=== PATIENT | female | born 1955 | race Caucasian/White ===

== ENCOUNTER 2018-02-27 16:24 | Emergency (ER) | payer OTHER ==
[~2018-02-27] VITALS: Wt 85.8 kg
[2018-02-27] MEDS ORDERED: ALBUTEROL 0.083% (NEB) 2.5 MG/3 ML AMP HHN STA (17:13)
[2018-02-27] MEDS ORDERED: SOD CHLORIDE 0.9% 1,000 ML IV STA (17:13)
[2018-02-27] MEDS ORDERED: CEFTRIAXONE 1 GM/50 ML (PMX) 50 ML IVPB STA (17:13)
--- NOTE | 2018-02-27 17:17 | ERD ---
ER Documentation Chief Complaint Chief Complaint COUGH/BACK PAIN X3DAYS SOB, DIARRHEA X3DAYS ROS All systems reviewed and are negative except as per history of present illness. Allergies Allergies: Coded Allergies: No Known Allergy (Unverified , 02/27/18) PMhx/Soc Medical and Surgical Hx: pt denies Surgical Hx Hx Miscellaneous Medical Probl: Yes (HTN,DM) Hx Alcohol Use: No Hx Substance Use: No Hx Tobacco Use: No Smoking Status: Never smoker Physical Exam Vitals Vital Signs Date Temp Pulse Resp B/P (MAP) Pulse Ox O2 O2 Flow FiO2 Time Delivery Rate 02/27/18 110 24 84 21 17:36 02/27/18 97.5 80 28 103/58 99 16:27 (73) Physical Exam Const: No acute distress Head: Atraumatic Eyes: Normal Conjunctiva ENT: Normal External Ears, Nose and Mouth. Neck: Full range of motion. No meningismus. Resp: Clear to auscultation bilaterally Cardio: Regular rate and rhythm, no murmurs Abd: Soft, non tender, non distended. Normal bowel sounds Skin: No petechiae or rashes Back: No midline or flank tenderness Ext: No cyanosis, or edema Neur: Awake and alert Psych: Normal Mood and Affect Result Diagram: 02/27/18 1741 Results 24 hrs Laboratory Tests Test 02/27/18 17:25 02/27/18 17:41 02/27/18 17:44 Urine Color YELLOW Urine Clarity SLIGHTLY CLOUDY Urine pH 5.0 Urine Specific [place] 1.018 Urine Ketones NEGATIVE mg/dL Urine Nitrite NEGATIVE mg/dL Urine Bilirubin NEGATIVE mg/dL Urine Urobilinogen NEGATIVE mg/dL Urine Leukocyte Esterase TRACE Iraida/ul Urine Microscopic RBC 2 /HPF Urine Microscopic WBC 11 /HPF Urine Squamous Epithelial Cells FEW /HPF Urine Hemoglobin NEGATIVE mg/dL Urine Glucose 3+ mg/dL Urine Total Protein 3+ mg/dl White Blood Count 18.0 10^3/ul Red Blood Count 3.81 10^6/ul Hemoglobin 11.5 g/dl Hematocrit 35.2 % Mean Corpuscular Volume 92.4 fl Mean Corpuscular Hemoglobin 30.2 pg Mean Corpuscular 32.7 g/dl Hemoglobin Concent Red Cell Distribution Width 13.2 % Platelet Count 350 10^3/UL Mean Platelet Volume 10.5 fl Immature Granulocytes % 0.500 % Neutrophils % 80.3 % Lymphocytes % 14.0 % Monocytes % 5.0 % Eosinophils % 0.0 % Basophils % 0.2 % Nucleated Red Blood Cells % 0.9 /100WBC Immature Granulocytes # 0.090 10^3/ul Neutrophils # 14.4 10^3/ul Lymphocytes # 2.5 10^3/ul Monocytes # 0.9 10^3/ul Eosinophils # 0.0 10^3/ul Basophils # 0.0 10^3/ul Nucleated Red Blood Cells # 0.2 10^3/ul POC Venous Lactate 6.4 mmol/L Current Medications Medications Dose Sig/Musa Start Time Status Last (Trade) Ordered Route PRN Stop Time Admin Dose Reason Admin Sodium 1,000 ml @ Q1H STAT 02/27/18 02/27/18 Chloride 1,000 mls/hr IV 17:13 17:30 02/27/18 18:12 Ceftriaxone 50 ml @ ONCE STAT 02/27/18 DC 02/27/18 Sodium 100 mls/hr IVPB 17:13 17:31 02/27/18 17:42 Albuterol 5 mg ONCE STAT 02/27/18 DC 02/27/18 (Proventil HHN 17:13 17:36 0.083% (Neb)) 02/27/18 17:22 Ipratropium 0.5 mg ONCE ONCE 02/27/18 DC 02/27/18 [facility] HHN 17:30 17:36 (Atrovent 02/27/18 0.02% 17:31 (Neb)) Departure Condition: Stable BLAIRE BONILLA MD Feb 27, 2018 17:17
[2018-02-27] MEDS ORDERED: IPRATROPIUM (NEB) 0.5 MG/2.5 ML AMP HHN ONE (17:30)
[2018-02-27] MEDS ORDERED: SODIUM CHLORIDE 0.9% 1L BAG IV* STA (17:52)
[2018-02-27] MEDS ORDERED: ACETAMINOPHEN 325 MG TAB PO STA (17:52)
[2018-02-27] MEDS ORDERED: AZITHROMYCIN 500MG/NS (PMX) 250 ML IV STA (17:52)
[2018-02-27] MEDS ORDERED: NPH,100V SQ (18:42)
[2018-02-27] MEDS ORDERED: INSU100V3 IJ (18:42)
[2018-02-27] MEDS ORDERED: IRBE150T21 PO (18:43)
[2018-02-27] MEDS ORDERED: AMLO-147 PO (18:43)
[2018-02-27] MEDS ORDERED: METF850T13 PO (18:43)
[2018-02-27] MEDS ORDERED: AZIT250T13 PO (18:45)
[2018-02-27] MEDS ORDERED: INSULIN LISPRO 100 UNIT/ML VIAL SC ONE (19:00)
[2018-02-27] MEDS ORDERED: ASPIRIN 325 MG TAB PO ONE (19:00)
--- NOTE | 2018-02-27 19:19 | ERD ---
ER Documentation Chief Complaint Chief Complaint COUGH/BACK PAIN X3DAYS SOB, DIARRHEA X3DAYS HPI Patient is a 62-year-old female with hypertension and diabetes who presents with chest pain and cough. The patient also had back pain and vomiting and diarrhea. The patient has no fevers. The patient has had 3 days of symptoms. The patient has had shortness of breath with minimal exertion. The patient is on metformin. Upon review of old medical records this is the patient's first visit to the emergency department. ROS All systems reviewed and are negative except as per history of present illness. Medications Home Meds Reported Medications Azithromycin* (Azithromycin*) 250 Mg Tablet, 250 MG PO DAILY for 5 Days, #6 TAB FOR 5 DAYS,LAST DATE 03/01/18 02/27/18 Irbesartan* (Irbesartan*) 150 Mg Tablet, 150 MG PO DAILY, TAB 02/27/18 Amlodipine Besylate* (Amlodipine Besylate*) 10 Mg Tablet, 10 MG PO DAILY, #30 TAB 02/27/18 Metformin Hcl* (Metformin Hcl*) 850 Mg Tablet, 850 MG PO AC D, #60 TAB 02/27/18 Insulin NPH Human Isophane (Humulin N) 100 Unit/1 Ml Vial, 15 UNIT SQ BID, VIAL 02/27/18 Insulin Regular, Human (Humulin R) 100 Unit/1 Ml Vial, 10 UNIT IJ BID, VIAL 02/27/18 Allergies Allergies: Coded Allergies: No Known Allergy (Unverified , 02/27/18) PMhx/Soc Medical and Surgical Hx: pt denies Surgical Hx Hx Miscellaneous Medical Probl: Yes (HTN,DM) Hx Alcohol Use: No Hx Substance Use: No Hx Tobacco Use: No Smoking Status: Never smoker FmHx Family History: diabetes Physical Exam Vitals Vital Signs Date Temp Pulse Resp B/P (MAP) Pulse Ox O2 O2 Flow FiO2 Time Delivery Rate 02/27/18 97.5 19:09 02/27/18 105 27 122/97 95 Nasal 2.0 18:57 (105) Cannula 02/27/18 110 24 84 21 17:36 02/27/18 97.5 80 28 103/58 99 16:27 (73) Physical Exam Const: Distress secondary to shortness of breath Head: Atraumatic Eyes: Normal Conjunctiva ENT: Normal External Ears, Nose and Mouth. Neck: Full range of motion. No meningismus. Resp: Decreased breath sounds bilaterally Cardio: Regular rate and rhythm, no murmurs Abd: Soft, non tender, non distended. Normal bowel sounds Skin: No petechiae or rashes Back: No midline or flank tenderness Ext: No cyanosis, or edema Neur: Awake and alert Psych: Normal Mood and Affect Result Diagram: 02/27/18 1741 02/27/18 1741 Results 24 hrs Laboratory Tests Test 02/27/18 17:25 02/27/18 17:41 02/27/18 17:44 02/27/18 18:15 Urine Color YELLOW Urine Clarity SLIGHTLY CLOUDY Urine pH 5.0 Urine Specific 1.018 [place] Urine Ketones NEGATIVE mg/dL Urine Nitrite NEGATIVE mg/dL Urine Bilirubin NEGATIVE mg/dL Urine NEGATIVE mg/dL Urobilinogen Urine Leukocyte TRACE Iraida/ul Esterase Urine 2 /HPF Microscopic RBC Urine 11 /HPF Microscopic WBC Urine Squamous FEW /HPF Epithelial Cell s Urine NEGATIVE mg/dL Hemoglobin Urine Glucose 3+ mg/dL Urine Total 3+ mg/dl Protein White Blood 18.0 10^3/ul Count Red Blood Count 3.81 10^6/ul Hemoglobin 11.5 g/dl Hematocrit 35.2 % Mean 92.4 fl Corpuscular Volume Mean 30.2 pg Corpuscular Hemoglobin Mean 32.7 g/dl Corpuscular Hemoglobin Conc ent Red Cell 13.2 % Distribution Width Platelet Count 350 10^3/UL Mean Platelet 10.5 fl Volume Immature 0.500 % Granulocytes % Neutrophils % 80.3 % Lymphocytes % 14.0 % Monocytes % 5.0 % Eosinophils % 0.0 % Basophils % 0.2 % Nucleated Red 0.9 /100WBC Blood Cells % Immature 0.090 10^3/ul Granulocytes # Neutrophils # 14.4 10^3/ul Lymphocytes # 2.5 10^3/ul Monocytes # 0.9 10^3/ul Eosinophils # 0.0 10^3/ul Basophils # 0.0 10^3/ul Nucleated Red 0.2 10^3/ul Blood Cells # Sodium Level 129 mmol/L Potassium Level 5.1 mmol/L Chloride Level 87 mmol/L Carbon Dioxide 21 mmol/L Level Anion Gap 21 Blood Urea 70 mg/dl Nitrogen Creatinine 1.94 mg/dl Est Glomerular 26 mL/min Filtrat Rate mL/min Glucose Level 526 mg/dl Calcium Level 8.8 mg/dl Troponin I 26.100 ng/ml POC Venous 6.4 mmol/L Lactate Prothrombin 14.2 Sec Time Prothrombin 1.1 Time Ratio INR 1.09 International Normalized Rati o Activated 29.6 Sec Partial Thrombo plast Time Test 02/27/18 18:27 02/27/18 18:54 Lactic Acid 9.2 mmol/L Level Bedside Glucose 474 mg/dL Current Medications Medications Dose Sig/Musa Start Time Status Last (Trade) Ordered Route PRN Stop Time Admin Dose Reason Admin Sodium 1,000 ml @ Q1H STAT 02/27/18 DC 02/27/18 Chloride 1,000 mls/hr IV 17:13 17:30 02/27/18 18:12 Ceftriaxone 50 ml @ ONCE STAT 02/27/18 DC 02/27/18 Sodium 100 mls/hr IVPB 17:13 17:31 02/27/18 17:42 Albuterol 5 mg ONCE STAT 02/27/18 DC 02/27/18 (Proventil HHN 17:13 17:36 0.083% (Neb)) 02/27/18 17:22 Ipratropium 0.5 mg ONCE ONCE 02/27/18 DC 02/27/18 [facility] HHN 17:30 17:36 (Atrovent 02/27/18 0.02% 17:31 (Neb)) Sodium 2,570 ml BOLUS OVER 2 02/27/18 DC Chloride HOURS STAT 17:52 (NS) IV* 02/27/18 18:42 650 mg ONCE STAT 02/27/18 DC Acetaminophen PO 17:52 (Tylenol 02/27/18 Tab) 17:55 Azithromycin 250 ml @ ONCE STAT 02/27/18 DC 02/27/18 250 mls/hr IV 17:52 18:36 02/27/18 18:51 Insulin 10 unit ONCE ONCE 02/27/18 DC 02/27/18 Human SC 19:00 18:58 Lispro 02/27/18 (Humalog) 19:01 Aspirin 325 mg ONCE ONCE 02/27/18 DC 02/27/18 (Aspirin) PO 19:00 18:52 02/27/18 19:01 Procedures/MDM EKG #1 read by me: Rate/Rhythm: Sinus rhythm Intervals: Normal Impression: ST elevation in aVR with diffuse ST depressions in other leads consistent with left main occlusion EKG #2 read by me: Rate/Rhythm: Sinus rhythm Intervals: Normal Impression: ST elevation in aVR with diffuse ST depressions in other leads consistent with left main occlusion Chest x-ray shows pulmonary edema per radiology. Patient is a 62-year-old female who presents with cough and shortness of breath as well as chest pain. EKG shows ST elevation only in aVR with diffuse ST depressions. There is no elevation in contiguous leads but pattern is consistent with left main occlusion. I spoke with Dr. Silva who recommended transfer for higher level of care as our [facility] is closed for renovation. Patient was given aspirin. Lactic acid is elevated but I doubt sepsis or septic shock I believe it's elevated secondary to cardiac pump failure. Patient accepted at 19:[address] Nieto at [facility]. Critical care time 45 minutes excluding billable procedures. Departure Diagnosis: Primary Impression: STEMI (ST elevation myocardial infarction) Involved coronary artery: left main coronary artery Qualified Codes: I21.01 - ST elevation (STEMI) myocardial infarction involving left main coronary artery Additional Impressions: Lactic acid increased SOB (shortness of breath) Hyperglycemia Condition: Critical GM MANDUJANO MD Feb 27, 2018 19:19
[2018-02-27 19:24] VITALS: BP 168/118; PULSE 106; RESP 30
== END 2018-02-27 19:24 | disposition short-term general hospital (02) ==
LOC: FTE 16:24 → E/R 19:24
DX: I21.01 ST elevation (STEMI) myocardial infarction involving left main coronary artery (principal); R06.02 Shortness of breath; R74.0 Nonspecific elevation of levels of transaminase and lactic acid dehydrogenase [LDH]; E11.65 Type 2 diabetes mellitus with hyperglycemia; R40.2252 Coma scale, best verbal response, oriented, at arrival to emergency department; R40.2362 Coma scale, best motor response, obeys commands, at arrival to emergency department; R40.2142 Coma scale, eyes open, spontaneous, at arrival to emergency department; I10 Essential (primary) hypertension; M54.9 Dorsalgia, unspecified; Z79.4 Long term (current) use of insulin
CPT/HCPCS: 71045; 80048; 81001; 82962; 83605; 84484; 85025; 85610; 85730; 87040; 87086; 87400; 94664; J0456; J0696; J1815; J7030; 93005; 96372; 96374; 96375

== ENCOUNTER 2018-05-23 12:17 | Inpatient (IN) | payer OTHER ==
[~2018-05-23] VITALS: Ht 160 cm; Wt 74.3 kg
[~2018-05-23 12:17] MED LIST: AMLO-147 PO; AZIT250T13 PO; INSU100V3 IJ; IRBE150T21 PO; METF850T13 PO; NPH,100V SQ
--- NOTE | 2018-05-23 15:58 | ERD ---
ER Documentation Chief Complaint Chief Complaint dizziness; numbness on both hands since 8am; a/ox4,ambulatory HPI 62-year-old female with a history of coronary artery disease status post CABG in March 2018 presenting with an episode today of difficulty speaking which then self resolved. After this, she had an episode of numbness in her left arm causing her to drop a plate. The numbness in her arm has currently improved and is only present in her left hand. She denies any current weakness. She denies any headache, vision disturbance, or dizziness. No chest pain or shortness of breath. She has never experienced something like this before. She is compliant with all of her medications. Her only blood thinner is aspirin and she is not on any other anticoagulants. ROS All systems reviewed and are negative except as per history of present illness. Medications Home Meds Reported Medications Insulin Isophan/Regular (Humulin 70/30) 100 Units/Ml Susp, 25 UNIT SC QPM, EA 05/23/18 Furosemide* (Furosemide*) 20 Mg Tablet, 20 MG PO DAILY, #30 TAB 05/23/18 Aspirin (Low Dose Aspirin) 81 Mg Tablet.dr, 81 MG PO DAILY, #30 TAB 05/23/18 Metformin Hcl* (Metformin Hcl*) 850 Mg Tablet, 850 MG PO TIDM A, #60 TAB 05/23/18 Sennosides* (Senna Lax*) 8.6 Mg Tablet, 2 TAB PO QHS, TAB 05/23/18 Atorvastatin* (Atorvastatin*) 40 Mg Tablet, 40 MG PO QHS, #30 TAB 05/23/18 Ferrous Sulfate* (Ferrous Sulfate*) 325 Mg Tabec, 325 MG PO BID, TAB 05/23/18 Carvedilol* (Carvedilol*) 3.125 Mg Tablet, 3.125 MG PO BID, #60 TAB 05/23/18 Discontinued Reported Medications Azithromycin* (Azithromycin*) 250 Mg Tablet, 250 MG PO DAILY for 5 Days, #6 TAB FOR 5 DAYS,LAST DATE 03/01/18 02/27/18 Irbesartan* (Irbesartan*) 150 Mg Tablet, 150 MG PO DAILY, TAB 02/27/18 Amlodipine Besylate* (Amlodipine Besylate*) 10 Mg Tablet, 10 MG PO DAILY, #30 TAB 02/27/18 Metformin Hcl* (Metformin Hcl*) 850 Mg Tablet, 850 MG PO AC D, #60 TAB 02/27/18 Insulin NPH Human Isophane (Humulin N) 100 Unit/1 Ml Vial, 15 UNIT SQ BID, VIAL 02/27/18 Insulin Regular, Human (Humulin R) 100 Unit/1 Ml Vial, 10 UNIT IJ BID, VIAL 02/27/18 Allergies Allergies: Coded Allergies: No Known Allergy (Unverified , 05/23/18) PMhx/Soc Medical and Surgical Hx: Unable to obtain History of Surgery: Yes (CABG March 2018) Anesthesia Reaction: No Hx Cardiac Disorders: Yes (Coronary artery disease) Hx Miscellaneous Medical Probl: Yes (HTN,DM) Hx Alcohol Use: No Hx Substance Use: No Hx Tobacco Use: No Smoking Status: Never smoker FmHx Family History: No diabetes Physical Exam Vitals Vital Signs Date Temp Pulse Resp B/P (MAP) Pulse Ox O2 O2 Flow FiO2 Time Delivery Rate 05/23/18 78 18 132/71 99 Room Air 18:14 (91) 05/23/18 98.6 102 20 219/102 99 12:23 (141) Physical Exam Const: No acute distress Head: Atraumatic Eyes: Normal Conjunctiva, PERRLA, EOMI, no nystagmus ENT: Normal External Ears, Nose and Mouth. Neck: Full range of motion. No meningismus. Chest wall: Midline sternotomy scar noted, well-healed. No chest wall tenderness to palpation. Resp: Clear to auscultation bilaterally Cardio: Regular rate and rhythm, no murmurs. 2+ distal pulses in all 4 extremities Abd: Soft, non tender, non distended. Normal bowel sounds Skin: No petechiae or rashes Back: No midline or flank tenderness Ext: No cyanosis, or edema Neur: Awake and alert, oriented, normal speech with no aphasia or dysarthria. Cranial nerves intact, strength and sensations intact in all 4 extremities. Psych: Normal Mood and Affect Result Diagram: 05/23/18 1550 05/23/18 1550 Results 24 hrs Laboratory Tests Test 05/23/18 15:50 White Blood Count 10.2 10^3/ul Red Blood Count 4.95 10^6/ul Hemoglobin 14.5 g/dl Hematocrit 44.9 % Mean Corpuscular Volume 90.7 fl Mean Corpuscular Hemoglobin 29.3 pg Mean Corpuscular Hemoglobin Concent 32.3 g/dl Red Cell Distribution Width 14.6 % Platelet Count 393 10^3/UL Mean Platelet Volume 10.2 fl Immature Granulocytes % 0.400 % Neutrophils % 60.5 % Lymphocytes % 34.4 % Monocytes % 4.2 % Eosinophils % 0.2 % Basophils % 0.3 % Nucleated Red Blood Cells % 0.0 /100WBC Immature Granulocytes # 0.040 10^3/ul Neutrophils # 6.2 10^3/ul Lymphocytes # 3.5 10^3/ul Monocytes # 0.4 10^3/ul Eosinophils # 0.0 10^3/ul Basophils # 0.0 10^3/ul Nucleated Red Blood Cells # 0.0 10^3/ul Sodium Level 143 mmol/L Potassium Level 4.4 mmol/L Chloride Level 99 mmol/L Carbon Dioxide Level 30 mmol/L Anion Gap 14 Blood Urea Nitrogen 21 mg/dl Creatinine 0.93 mg/dl Est Glomerular Filtrat Rate mL/min > 60 mL/min Glucose Level 186 mg/dl Calcium Level 10.2 mg/dl Troponin I 0.022 ng/ml Procedures/MDM EMERGENT LABS AND DIAGNOSTIC STUDIES: Lab Results above were reviewed and interpreted by me. CBC: no anemia or evidence of infection CMP: No evidence of electrolyte abnormality, renal failure, hypoglycemia, liver failure, or biliary obstruction Troponin within normal limits, not indicative of cardiac ischemia 12-lead EKG was interpreted by Mary Vernon MD: Sinus rhythm with frequent PVCs Normal axis Normal intervals No acute ST or T wave changes suggestive of acute ischemia or STEMI. Radiology Results as interpreted by Radiology below were reviewed by Nadine Vernon MD: Chest x-ray shows no acute abnormalities. CT head shows no acute abnormalities Initial Nursing notes reviewed. Previous Medical Records requested via the Electronic Health Record. EMERGENCY DEPARTMENT COURSE / MEDICAL DECISION MAKING: Patient is presenting with intermittent neurologic symptoms concerning for possible TIA. She was noted to be hypertensive upon arrival but otherwise her vitals were unremarkable. Her neurologic exam currently is normal. There are no signs of acute stroke. CT head was done and was unremarkable. Labs do not show any significant abnormalities either. I doubt acute coronary syndrome or carotid or aortic dissection. However I feel the patient needs a stroke workup to rule out any embolic source of her symptoms. Accepting Care Team: Current data and ongoing care discussed. Time: Time of admission Primary Provider: Dr. Akua Boo Consulting: None Outstanding Data: none Departure Diagnosis: Primary Impression: Transient neurological symptoms Condition: SUSHILA Head MD May 23, 2018 15:58
[2018-05-23] MEDS ORDERED: CARV3.1260 PO (17:20)
[2018-05-23] MEDS ORDERED: ATOR40TA68 PO (17:21)
[2018-05-23] MEDS ORDERED: FER325 PO (17:21)
[2018-05-23] MEDS ORDERED: SENN-120 PO (17:21)
[2018-05-23] MEDS ORDERED: FURO20TA3 PO (17:22)
[2018-05-23] MEDS ORDERED: METF850T13 PO (17:22)
[2018-05-23] MEDS ORDERED: ASPI81TA52 PO (17:22)
[2018-05-23] MEDS ORDERED: NOVO7030 SC (17:24)
[2018-05-23] MEDS ORDERED: ACETAMINOPHEN 325 MG TAB PO PRN (18:30)
[2018-05-23] MEDS ORDERED: ONDANSETRON 4 MG INJ IV PRN ×2 (18:30→20:30)
[2018-05-23 20:00] VITALS: BP 189/83; PULSE 80; RESP 18; Ht 160 cm; Wt 74.3 kg
[2018-05-23 20:10] VITALS: PULSE 85
[2018-05-23] MEDS ORDERED: GLUCOSE GEL 15 GRAM TUBE BUCCAL PRN (20:30)
[2018-05-23] MEDS ORDERED: morphine 2 MG INJ IV PRN (20:30)
[2018-05-23] MEDS ORDERED: GLUCAGON 1 MG INJ IM PRN (20:30)
[2018-05-23] MEDS ORDERED: GLUCOSE GEL 15 GRAM TUBE PO PRN ×2 (20:30)
[2018-05-23] MEDS ORDERED: DEXTROSE 50% 50 ML SYRINGE IV PRN ×2 (20:30)
[2018-05-23] MEDS ORDERED: NACL 0.9% 3 ML SYG IV SCH (20:30)
[2018-05-23] MEDS: ACCU-CHEK XX SCH (21:00)
[2018-05-23] MEDS: FERROUS SULFATE (EC) 325 MG TAB PO SCH (21:30)
[2018-05-23] MEDS: metFORMIN 850 MG TAB PO SCH (21:31)
[2018-05-23] MEDS: SENNA TAB PO SCH (21:31)
[2018-05-23] MEDS: FAMOTIDINE 20 MG INJ IV SCH (21:32)
[2018-05-23] MEDS: ATORVASTATIN 40 MG TAB PO SCH (21:32)
[2018-05-23] MEDS: INSULIN ASP PROT/ASPART (70/30) PEN SC SCH (22:48)
[2018-05-24] VITALS (12 sets, daily range): BP systolic 122–165; BP diastolic 61–90; PULSE 62–131; RESP 16–20
[2018-05-24] MEDS: ACCU-CHEK XX SCH ×5 (02:00→21:00)
[2018-05-24] MEDS: FERROUS SULFATE (EC) 325 MG TAB PO SCH ×2 (08:09→21:17)
[2018-05-24] MEDS: metFORMIN 850 MG TAB PO SCH ×2 (08:09→18:03)
[2018-05-24] MEDS: ASPIRIN (EC) 81 MG TAB PO SCH (08:10)
[2018-05-24] MEDS: FUROSEMIDE 20 MG TAB PO SCH (08:11)
[2018-05-24] MEDS: FAMOTIDINE 20 MG INJ IV SCH ×2 (08:12→21:16)
[2018-05-24] MEDS: ENOXAPARIN 30 MG/0.3 ML SYG SC SCH (08:13)
[2018-05-24] MEDS: INSULIN ASPART [NOVOLOG] 3 ML PEN SC SCH ×3 (10:08→18:12)
--- NOTE | 2018-05-24 12:15 | HP ---
Date/Time of Note Date/Time of Note DATE: 05/24/18 TIME: 12:11 Assessment/Plan VTE Prophylaxis Risk score (from Ns)>0 risk: 3 SCD applied (from Ns): Yes Pharmacological prophylaxis: LMWH Lines/Catheters IV [facility]from [facility] Saline Lock Urinary Cath still in place: No Assessment/Plan Hospital Course 1) left sided numbness, weakness; possible TIA - check MRI, carotid doppler - monitor clinically 2) diabetes - monitor blood sugar Result Diagram: 05/24/18 0506 05/24/18 0506 Results 24hrs Laboratory Tests Test 05/23/18 15:50 05/23/18 20:26 05/24/18 05:06 05/24/18 07:43 White Blood Count 10.2 # 11.4 H Red Blood Count 4.95 # 4.55 Hemoglobin 14.5 # 13.4 Hematocrit 44.9 # 41.4 Mean Corpuscular 90.7 91.0 Volume Mean Corpuscular 29.3 29.5 Hemoglobin Mean Corpuscular 32.3 32.4 Hemoglobin Concent Red Cell 14.6 H 14.7 H Distribution Width Platelet Count 393 365 Mean Platelet Volume 10.2 10.2 Immature 0.400 0.400 Granulocytes % Neutrophils % 60.5 59.3 Lymphocytes % 34.4 33.2 Monocytes % 4.2 6.3 Eosinophils % 0.2 0.4 Basophils % 0.3 0.4 Nucleated Red Blood 0.0 0.0 Cells % Immature 0.040 H 0.040 H Granulocytes # Neutrophils # 6.2 6.8 Lymphocytes # 3.5 H 3.8 H Monocytes # 0.4 0.7 Eosinophils # 0.0 0.0 Basophils # 0.0 0.0 Nucleated Red Blood 0.0 0.0 Cells # Sodium Level 143 144 Potassium Level 4.4 3.9 Chloride Level 99 104 Carbon Dioxide Level 30 32 H Anion Gap 14 H 8 Blood Urea Nitrogen 21 H 20 Creatinine 0.93 1.01 H Est Glomerular > 60 56 L Filtrat Rate mL/min Glucose Level 186 63 #L Calcium Level 10.2 9.6 Troponin I 0.022 Bedside Glucose 156 90 Hemoglobin A1c 7.9 H Total Bilirubin 0.4 Direct Bilirubin 0.00 Indirect Bilirubin 0.4 Aspartate Amino 30 Transf (AST/SGOT) Alanine 21 Aminotransferase (AL T/SGPT) Alkaline Phosphatase 107 Total Protein 6.9 Albumin 3.6 Globulin 3.30 H Albumin/Globulin 1.09 Ratio Test 05/24/18 10:06 Bedside Glucose 166 HPI/ROS Admit Date/Time Admit Date/Time May 23, 2018 at 18:27 Hx of Present Illness Patient with hypertension, diabetes, coronary artery disease comes in with 1 day of dysarthria, left sided numbness and weakness of arms. Symptoms of dysarthria lasted minutes while the numbness originally affected the left side of arm but is now only affected the dorsal area of left thumb. Weakness of left arm is intermitted lasting only seconds. No previous episodes of the same PMH/Family/Social Past Medical History Medical History: coronary artery disease, diabetes, high cholesterol Medications Current Medications IV Flush (NS 3 ml) 3 ml PER PROTOCOL IV ; Start 05/23/18 at 20:30 Ondansetron HCl (Zofran Inj) 4 mg Q6H PRN IV NAUSEA/VOMITING; Start 05/23/18 at 20:30 Morphine Sulfate (morphine) 2 mg Q4H PRN IV .PAIN 7-10; Start 05/23/18 at 20:30 Famotidine (Pepcid Iv) 20 mg Q12 IV Last administered on 05/24/18at 08:12; Admin Dose 20 MG; Start 05/23/18 at 21:00 Enoxaparin Sodium (Lovenox) 30 mg DAILY SC Last administered on 05/24/18at 08:13 ; Admin Dose 30 MG; Start 05/24/18 at 09:00 Clonidine (Catapres) 0.1 mg Q6H PRN PO SBP >160 Last administered on 05/24/18at 05:10; Admin Dose 0.1 MG; Start 05/23/18 at 20:30 Diagnostic Test (Pha) (Accu-Chek) 1 ea 02 XX ; Start 05/24/18 at 02:00 Insulin Aspart (Novolog Insulin Pen) 5 unit WITH MEALS SC Last administered on 05/24/18at 10:08; Admin Dose 5 UNIT; Start 05/24/18 at 08:00 Aspirin (Halfprin) 81 mg DAILY PO Last administered on 05/24/18at 08:10; Admin Dose 81 MG; Start 05/24/18 at 09:00 Atorvastatin Calcium (Lipitor) 40 mg QHS PO Last administered on 05/23/18 21:32; Admin Dose 40 MG; Start 05/23/18 at 21:00 Carvedilol (Coreg) 3.125 mg BID PO Last administered on 05/24/18 08:11; Admin Dose 3.125 MG; Start 05/23/18 at 21:00 Ferrous Sulfate (Ferrous Sulfate (Ec)) 325 mg BID PO Last administered on 05/24/18 08:09; Admin Dose 325 MG; Start 05/23/18 at 21:00 Furosemide (Lasix) 20 mg DAILY PO Last administered on 05/24/18 08:11; Admin Dose 20 MG; Start 05/24/18 at 09:00 Metformin HCl (Glucophage) 850 mg BID WITH MEALS PO Last administered on 05/24/18 08:09; Admin Dose 850 MG; Start 05/23/18 at 21:00 Senna (Senokot) 2 tab QHS PO Last administered on 05/23/18 21:31; Admin Dose 2 TAB; Start 05/23/18 at 21:00 Diagnostic Test (Pha) (Accu-Chek) 1 ea AC MEALS AND BEDTIME XX Last administered on 05/24/18 07:30; Admin Dose 1 EA; Start 05/23/18 at 21:00 Insulin Aspart Prota 70%/Aspart 30% (Novolog Mix (70/ 30) Flexpen) 25 unit QPM SC Last administered on 05/23/18 22:48; Admin Dose 25 UNIT; Start 05/23/18 at 21:00 Miscellaneous Information 1 ea NOTE XX ; Start 05/23/18 at 20:30 Glucose (Glutose) 15 gm Q15M PRN PO DECREASED GLUCOSE; Start 05/23/18 at 20:30 Glucose (Glutose) 22.5 gm Q15M PRN PO DECREASED GLUCOSE; Start 05/23/18 at 20:30 Dextrose (D50w Syringe) 25 ml Q15M PRN IV DECREASED GLUCOSE; Start 05/23/18 at 20:30 Dextrose (D50w Syringe) 50 ml Q15M PRN IV DECREASED GLUCOSE; Start 05/23/18 at 20:30 Glucagon (Glucagen) 1 mg Q15M PRN IM DECREASED GLUCOSE; Start 05/23/18 at 20:30 Glucose (Glutose) 15 gm Q15M PRN BUCCAL DECREASED GLUCOSE; Start 05/23/18 at 20:30 Coded Allergies: No Known Allergy (Unverified , 05/23/18) Social History Smoking Status: Never smoker Exam/Review of Systems Vital Signs Vitals Vital Signs Date Temp Pulse Resp B/P (MAP) Pulse Ox O2 O2 Flow FiO2 Time Delivery Rate 05/24/18 63 08:12 05/24/18 99.0 20 158/75 98 07:56 (102) 05/23/18 Room Air 19:31 Exam Constitutional: well developed Head: normocephalic, atraumatic Neck: supple Respiratory: clear to auscultation Cardiovascular: regular rate and rhythm Gastrointestinal: soft, non-tender Extremities: normal pulses ZOIE WINCHESTER May 24, 2018 12:15
--- NOTE | 2018-05-24 16:20 | RADRPT ---
Echocardiogram Report Patient Name: CASSANDRA GRUBERatient ID: [id number] : 1955 (62y 12m)Study Date: 05/24/2018 7:36:58 AM Gender: FAccession #: [id number] Tech: Darrin LeninHELEN jasso Location: Ref.Physician: ZOIE WINCHESTER Height(Cm): BSA: Weight(Kg): Quality: GoodAccount #: Procedures: Echocardiographic Report: Transthoracic echocardiogram with complete 2D, M-Mode, and doppler examination. Indications: Possible Transient Ischemic Attack. Measurements: 2D/M Mode Doppler Measurement Value Normal Range Measurement Value Normal Range LVIDd 2D 5.6 [ 3.8 - 5.2 ] cm AV Peak Mihir 1.3 [ 100.0 - 170.0 ] cm/se c LVIDs 2D 4.7 [ 2.2 - 3.5 ] cm AV Peak PG 7.0 [ 2.0 - 9.0 ] mmHg LVPWd 2D 1.2 [ 0.6 - 0.9 ] cm LVOT Peak Mihir 0.7 [ 70.0 - 110.0 ] cm/sec IVSd 2D 0.9 [ 0.6 - 0.9 ] cm LVOT Peak PG 2.0 [ 2.0 - 6.0 ] mmHg AoR Diam 2D 2.7 [ 2.3 - 3.1 ] cm MV E Peak Mihir 0.5 [ 60.0 - 130.0 ] cm/sec EDV 2D 151.0 [ 46.0 - 106.0 ] ml MV A Peak Imhir 0.8 [ 100.0 - 120.0 ] cm/se c ESV 2D 103.0 [ 14.0 - 42.0 ] ml MV E/A 0.7 [ 0.8 - 1.5 ] ratio EF 2D 31.8 [ 54.0 - 74.0 ] percent MV PHT 48.0 [ 20.0 - 100.0 ] msec LA Dimen 2D 3.9 [ 2.7 - 3.8 ] cm MV Decel Time 165 [ 104 - 258 ] msec MV Decel [place] 3 Lat E` Mihir 0.1 [ 10.0 - 15.0 ] cm/sec Lateral E/E` 8.2 [ 1.0 - 2.0 ] ratio MV E/A 0.7 [ 0.8 - 1.5 ] ratio MVA PHT 4.6 [ 2.0 - 4.0 ] cm2 Findings: Left Ventricle: Mild enlargement of left ventricle cavity. Severe left ventricular systolic dysfunction. Ejection fraction is visually estimated at 25-30 %. Tissue Doppler/Mitral Doppler indices are consistent with impaired relaxation (Stage I diastolic dysfunction). Right Ventricle: Normal right ventricular size. Normal right ventricular systolic function. Left Atrium: The left atrium is normal in size. Right Atrium: The right atrium is normal in size. Atrial Septum: Normal atrial septum. Ventricular septum: Normal/intact ventricular septum. Mitral Valve: Normal appearance of the mitral valve. Mild mitral valve regurgitation. Aortic Valve: Normal appearance of the aortic valve. Trace aortic valve regurgitation. Tricuspid Valve: Normal appearance of the tricuspid valve. Unable to obtain RVSP due to minimal presence of tricuspid regurgitation. There is trace tricuspid regurgitation. Pulmonic Valve: Normal pulmonic valve appearance. No evidence of pulmonic regurgitation. Pericardium: Normal pericardium with no significant pericardial effusion. Aorta: Normal aortic root. IVC: Normal size and normal respiratory collapse consistent with normal right atrial pressure. Pulmonary Artery: Normal pulmonary artery size. Conclusions: Mild enlargement of left ventricle cavity. Severe left ventricular systolic dysfunction. Ejection fraction is visually estimated at 25-30 %. Tissue Doppler/Mitral Doppler indices are consistent with impaired relaxation (Stage I diastolic dysfunction). Normal appearance of the mitral valve. Mild mitral valve regurgitation. n. Normal appearance of the aortic valve. Trace aortic valve regurgitation. n. Normal appearance of the tricuspid valve. Unable to obtain RVSP due to minimal presence of tricuspid regurgitation. There is trace tricuspid regurgitation. Electronically Signed By: Jv Silva 2018-05-24 16:19:32 PDT
[2018-05-24] MEDS: ATORVASTATIN 40 MG TAB PO SCH (21:16)
[2018-05-24] MEDS: SENNA TAB PO SCH (21:17)
[2018-05-24] MEDS: INSULIN ASP PROT/ASPART (70/30) PEN SC SCH (21:31)
[2018-05-25] VITALS (9 sets, daily range): BP systolic 137–162; BP diastolic 58–72; PULSE 63–73; RESP 16–20
[2018-05-25] MEDS: ACCU-CHEK XX SCH ×5 (02:00→19:57)
[2018-05-25] MEDS: INSULIN ASPART [NOVOLOG] 3 ML PEN SC SCH ×3 (07:36→17:49)
[2018-05-25] MEDS: FERROUS SULFATE (EC) 325 MG TAB PO SCH ×2 (08:37→19:54)
[2018-05-25] MEDS: FUROSEMIDE 20 MG TAB PO SCH (08:37)
[2018-05-25] MEDS: metFORMIN 850 MG TAB PO SCH ×2 (08:37→17:41)
[2018-05-25] MEDS: ASPIRIN (EC) 81 MG TAB PO SCH (08:38)
[2018-05-25] MEDS: FAMOTIDINE 20 MG INJ IV SCH (08:39)
[2018-05-25] MEDS: ENOXAPARIN 30 MG/0.3 ML SYG SC SCH (08:55)
--- NOTE | 2018-05-25 13:53 | CONS ---
Assessment/Plan Assessment/Plan Hospital Course 62 F c/ reported Hx of CAD s/p CABG in 03/21, and other cerebrovascular risk factors, who presents for evaluation of dysarthria and left arm weakness and numbness.. MRI brain confirmed acute R hemispheric infarcts..for which neurology is consulted. CUS is notable for moderate R ICA stenosis A1C 7.9% P: asa/lipitor daily for secondary stroke prevention Await echo Add CTA head and neck to reeval R ICA.. Consider vascular surgery evaluation pending the above ESR, RPR, Lipid panel PT/OT/ST as necessary Glucose control and other medical management per primary Will follow Consultation Date/Type/Reason Admit Date/Time May 23, 2018 at 18:27 Type of Consult Neurology Reason for Consultation stroke Requesting Provider: MCKAY ROSAS Date/Time of Note DATE: 05/25/18 TIME: 13:42 Hx of Present Illness 62 yo F with hx of recent CABG x 2 in 03/2018, HTN, DM, and other comorbidities who presents for evaluation of dysarthria, L arm numbness/weakness. History was obtained from pt and chart review. The pt states that her sx came on suddenly on Friday morning around 9am. She states that she was eating breakfast when she felt her tongue go numb. She then recalls calling her sister who asked her if she was okay because she wasn't speaking normally. She stated that after the phone call, she went to take her plate into the kitchen when she felt her L arm go completely numb and weak, causing her to drop the plate. She says that the numbness/weakness was transient, lasting what felt like seconds, but then came back in the afternoon. The second episode of L arm/weakness was prolonged, which prompted a visit to the ED. They lasted for about two days and started to resolve this morning. The pt states that she has some residual numbness in her L thumb. Denies any other weakness, numbness, vision/speech changes, gait abnormalities. Also denies headache, dizziness, lethargy, confusion. It is additionally elsewhere noted: Hx of Present Illness Patient with hypertension, diabetes, coronary artery disease comes in with 1 day of dysarthria, left sided numbness and weakness of arms. Symptoms of dysarthria lasted minutes while the numbness originally affected the left side of arm but is now only affected the dorsal area of left thumb. Weakness of left arm is intermitted lasting only seconds. No previous episodes of the same negative unless noted otherwise in HPI Exam/Review of Systems Exam Vitals Vital Signs Date Temp Pulse Resp B/P (MAP) Pulse Ox O2 O2 Flow FiO2 Time Delivery Rate 05/25/18 69 12:41 05/25/18 98.7 18 137/63 96 Room Air 11:26 (87) Intake and Output 05/24/18 05/24/18 05/25/18 1515:00 23:00 07:00 IntakeIntake Total 350 ml 750 ml 250 ml BalanceBalance 350 ml 750 ml 250 ml Exam PE: Gen Appearance: No Apparent Distress HEENT: Normocephalic Cardiovascular: Regular rate Lungs: Clear bilaterally Abdomen: Soft Extremities: Dry NE: The patient was alert and oriented. Language was normal. Fund of knowledge was normal. Pupils were equal and reactive to light. There was no afferent pupillary defect. Visual shultz were normal. Funduscopic examination showed sharp disc margins and spontaneous venous pulsations. Extra-ocular movements were full. Ptosis was a bsent. There was no nystagmus. Facial sensation was normal. Face was symmetric with normal strength. Hearing was intact. Palate movements were normal. Neck strength was normal. There was normal tongue bulk and speed of movement. Tone was normal. Muscle bulk was normal. I did not see fasciculations. Arms and legs were strong. Sensation to light touch was diminished in her L thumb. Vibration sensation was normal. Temperature and pinprick sensation was normal. Rapid alternating movements were normal. There was no dysmetria. There was no intention tremor. Gait was deferred due to bedrest. Arm and leg reflexes were 2+ and symmetric. Merritt's sign was absent. Plantar responses were flexor. Results Result Diagram: 05/24/18 0506 05/24/18 0506 Results 24hrs Laboratory Tests Test 05/24/18 17:58 05/24/18 21:13 05/25/18 07:31 05/25/18 11:52 Bedside Glucose 94 134 155 231 H Medications Medication Current Medications IV Flush (NS 3 ml) 3 ml PER PROTOCOL IV ; Start 05/23/18 at 20:30 Ondansetron HCl (Zofran Inj) 4 mg Q6H PRN IV NAUSEA/VOMITING; Start 05/23/18 at 20:30 Morphine Sulfate (morphine) 2 mg Q4H PRN IV .PAIN 7-10; Start 05/23/18 at 20:30 Enoxaparin Sodium (Lovenox) 30 mg DAILY SC Last administered on 05/25/18 08:55; Admin Dose 30 MG; Start 05/24/18 at 09:00 Clonidine (Catapres) 0.1 mg Q6H PRN PO SBP >160 Last administered on 05/24/18 05:10; Admin Dose 0.1 MG; Start 05/23/18 at 20:30; Status Hold Diagnostic Test (Pha) (Accu-Chek) 1 ea 02 XX ; Start 05/24/18 at 02:00 Insulin Aspart (Novolog Insulin Pen) 5 unit WITH MEALS SC Last administered on 05/25/18 12:00; Admin Dose 5 UNIT; Start 05/24/18 at 08:00 Aspirin (Halfprin) 81 mg DAILY PO Last administered on 05/25/18 08:38; Admin Dose 81 MG; Start 05/24/18 at 09:00 Atorvastatin Calcium (Lipitor) 40 mg QHS PO Last administered on 05/24/18 21:16; Admin Dose 40 MG; Start 05/23/18 at 21:00 Carvedilol (Coreg) 3.125 mg BID PO Last administered on 05/25/18 08:38; Admin Dose 3.125 MG; Start 05/23/18 at 21:00; Status Hold Ferrous Sulfate (Ferrous Sulfate (Ec)) 325 mg BID PO Last administered on 05/25/18 08:37; Admin Dose 325 MG; Start 05/23/18 at 21:00 Furosemide (Lasix) 20 mg DAILY PO Last administered on 05/25/18 08:37; Admin Dose 20 MG; Start 05/24/18 at 09:00 Metformin HCl (Glucophage) 850 mg BID WITH MEALS PO Last administered on 05/25/18 08:37; Admin Dose 850 MG; Start 05/23/18 at 21:00 Senna (Senokot) 2 tab QHS PO Last administered on 05/24/18 21:17; Admin Dose 2 TAB; Start 05/23/18 at 21:00 Diagnostic Test (Pha) (Accu-Chek) 1 ea AC MEALS AND BEDTIME XX Last admin istered on 05/25/18at 11:55; Admin Dose 1 EA; Start 05/23/18 at 21:00 Insulin Aspart Prota 70%/Aspart 30% (Novolog Mix (70/ 30) Flexpen) 25 unit QPM SC Last administered on 05/24/18at 21:31; Admin Dose 25 UNIT; Start 05/23/18 at 21:00 Miscellaneous Information 1 ea NOTE XX ; Start 05/23/18 at 20:30 Glucose (Glutose) 15 gm Q15M PRN PO DECREASED GLUCOSE; Start 05/23/18 at 20:30 Glucose (Glutose) 22.5 gm Q15M PRN PO DECREASED GLUCOSE; Start 05/23/18 at 20:30 Dextrose (D50w Syringe) 25 ml Q15M PRN IV DECREASED GLUCOSE; Start 05/23/18 at 20:30 Dextrose (D50w Syringe) 50 ml Q15M PRN IV DECREASED GLUCOSE; Start 05/23/18 at 20:30 Glucagon (Glucagen) 1 mg Q15M PRN IM DECREASED GLUCOSE; Start 05/23/18 at 20:30 Glucose (Glutose) 15 gm Q15M PRN BUCCAL DECREASED GLUCOSE; Start 05/23/18 at 20:30 Past Medical History reviewed Medical History: coronary artery disease, diabetes, high cholesterol Home Meds Reported Medications Insulin Isophan/Regular (Humulin 70/30) 100 Units/Ml Susp, 25 UNIT SC QPM, EA 05/23/18 Furosemide* (Furosemide*) 20 Mg Tablet, 20 MG PO DAILY, #30 TAB 05/23/18 Aspirin (Low Dose Aspirin) 81 Mg Tablet.dr, 81 MG PO DAILY, #30 TAB 05/23/18 Metformin Hcl* (Metformin Hcl*) 850 Mg Tablet, 850 MG PO TIDM A, #60 TAB 05/23/18 Sennosides* (Senna Lax*) 8.6 Mg Tablet, 2 TAB PO QHS, TAB 05/23/18 Atorvastatin* (Atorvastatin*) 40 Mg Tablet, 40 MG PO QHS, #30 TAB 05/23/18 Ferrous Sulfate* (Ferrous Sulfate*) 325 Mg Tabec, 325 MG PO BID, TAB 05/23/18 Carvedilol* (Carvedilol*) 3.125 Mg Tablet, 3.125 MG PO BID, #60 TAB 3/23/19 Discontinued Reported Medications Azithromycin* (Azithromycin*) 250 Mg Tablet, 250 MG PO DAILY for 5 Days, #6 TAB FOR 5 DAYS,LAST DATE 03/01/18 02/27/18 Irbesartan* (Irbesartan*) 150 Mg Tablet, 150 MG PO DAILY, TAB 02/27/18 Amlodipine Besylate* (Amlodipine Besylate*) 10 Mg Tablet, 10 MG PO DAILY, #30 TAB 02/27/18 Metformin Hcl* (Metformin Hcl*) 850 Mg Tablet, 850 MG PO AC D, #60 TAB 02/27/18 Insulin NPH Human Isophane (Humulin N) 100 Unit/1 Ml Vial, 15 UNIT SQ BID, VIAL 02/27/18 Insulin Regular, Human (Humulin R) 100 Unit/1 Ml Vial, 10 UNIT IJ BID, VIAL 02/27/18 Medications Current Medications IV Flush (NS 3 ml) 3 ml PER PROTOCOL IV ; Start 05/23/18 at 20:30 Ondansetron HCl (Zofran Inj) 4 mg Q6H PRN IV NAUSEA/VOMITING; Start 05/23/18 at 20:30 Morphine Sulfate (morphine) 2 mg Q4H PRN IV .PAIN 7-10; Start 05/23/18 at 20:30 Enoxaparin Sodium (Lovenox) 30 mg DAILY SC Last administered on 05/25/18at 08:55; Admin Dose 30 MG; Start 05/24/18 at 09:00 Clonidine (Catapres) 0.1 mg Q6H PRN PO SBP >160 Last administered on 05/24/18at 05:10; Admin Dose 0.1 MG; Start 05/23/18 at 20:30; Status Hold Diagnostic Test (Pha) (Accu-Chek) 1 ea 02 XX ; Start 05/24/18 at 02:00 Insulin Aspart (Novolog Insulin Pen) 5 unit WITH MEALS SC Last administered on 05/25/18at 12:00; Admin Dose 5 UNIT; Start 05/24/18 at 08:00 Aspirin (Halfprin) 81 mg DAILY PO Last administered on 05/25/18at 08:38; Admin Dose 81 MG; Start 05/24/18 at 09:00 Atorvastatin Calcium (Lipitor) 40 mg QHS PO Last administered on 05/24/18at 21:16; Admin Dose 40 MG; Start 05/23/18 at 21:00 Carvedilol (Coreg) 3.125 mg BID PO Last administered on 05/25/18 08:38; Admin Dose 3.125 MG; Start 05/23/18 at 21:00; Status Hold Ferrous Sulfate (Ferrous Sulfate (Ec)) 325 mg BID PO Last administered on 08:37; Admin Dose 325 MG; Start 05/23/18 at 21:00 Furosemide (Lasix) 20 mg DAILY PO Last administered on 05/25/18 08:37; Admin Dose 20 MG; Start 05/24/18 at 09:00 Metformin HCl (Glucophage) 850 mg BID WITH MEALS PO Last administered on 05/25/18 08:37; Admin Dose 850 MG; Start 05/23/18 at 21:00 Senna (Senokot) 2 tab QHS PO Last administered on 05/24/18 21:17; Admin Dose 2 TAB; Start 05/23/18 at 21:00 Diagnostic Test (Pha) (Accu-Chek) 1 ea AC MEALS AND BEDTIME XX Last administered on 05/25/18 11:55; Admin Dose 1 EA; Start 05/23/18 at 21:00 Insulin Aspart Prota 70%/Aspart 30% (Novolog Mix (70/ 30) Flexpen) 25 unit QPM SC Last administered on 05/24/18 21:31; Admin Dose 25 UNIT; Start 05/23/18 at 21:00 Miscellaneous Information 1 ea NOTE XX ; Start 05/23/18 at 20:30 Glucose (Glutose) 15 gm Q15M PRN PO DECREASED GLUCOSE; Start 05/23/18 at 20:30 Glucose (Glutose) 22.5 gm Q15M PRN PO DECREASED GLUCOSE; Start 05/23/18 at 20:30 Dextrose (D50w Syringe) 25 ml Q15M PRN IV DECREASED GLUCOSE; Start 05/23/18 at 20:30 Dextrose (D50w Syringe) 50 ml Q15M PRN IV DECREASED GLUCOSE; Start 05/23/18 at 20:30 Glucagon (Glucagen) 1 mg Q15M PRN IM DECREASED GLUCOSE; Start 05/23/18 at 20:30 Glucose (Glutose) 15 gm Q15M PRN BUCCAL DECREASED GLUCOSE; Start 05/23/18 at 20:30 Allergies: Coded Allergies: No Known Allergy (Unverified , 05/23/18) Past Surgical History reviewed Social History reviewed Smoking Status: Never smoker RADHA ANTONY NP May 25, 2018 13:53 GEOFFREY UP May 25, 2018 15:03
--- NOTE | 2018-05-25 14:30 | PN ---
Date/Time of Note Date/Time of Note DATE: 05/25/18 TIME: 14:27 Assessment/Plan VTE Prophylaxis Risk score (from Ns)>0 risk: 4 SCD applied (from Ns): Yes Pharmacological prophylaxis: LMWH Lines/Catheters [facility] [place] Urinary Cath still in place: No Assessment/Plan Hospital Course Patient is awake, alert, denies any shortness of breath, denies any chest pain, complains of left upper extremity weakness. Blood sugar is well controlled, will obtain lipid panel. Assessment/Plan -Acute infarct, continue aspirin, PT OT and speech therapist evaluation. Dr. Marshall is asked to see patient in neurology consultation. -Moderate stenosis (50-69%) at the proximal right internal carotid artery. Dr. Casanova is asked to see patient in vascular surgery consultation. -Coronary artery disease status post recent CABG -Low EF per recent Echo. Dr Silva is asked to see pt in cardiology consultation. -Hypertension -Diabetes mellitus with hemoglobin A1c 7.9. Continue metformin and NovoLog. Further recommendations based on clinical course. Plan of care discussed with Dr. Nettles. Result Diagram: 05/24/18 0506 05/24/18 0506 Results 24hrs Laboratory Tests Test 05/24/18 17:58 05/24/18 21:13 05/25/18 07:31 05/25/18 11:52 Bedside Glucose 94 134 155 231 H Exam/Review of Systems Exam Vitals Vital Signs Date Temp Pulse Resp B/P (MAP) Pulse Ox O2 O2 Flow FiO2 Time Delivery Rate 05/25/18 69 12:41 05/25/18 98.7 18 137/63 96 Room Air 11:26 (87) Intake and Output 05/24/18 05/24/18 05/25/18 1515:00 23:00 07:00 IntakeIntake Total 350 ml 750 ml 250 ml BalanceBalance 350 ml 750 ml 250 ml Constitutional: alert, oriented ENMT: nl external ears & nose Neck: supple Respiratory: clear to auscultation Cardiovascular: nl pulses Gastrointestinal: soft, non-tender Musculoskeletal: other (LUE wekness) Extremities: normal pulses Neurological: other (LUE weakness) Results Results 24hrs Laboratory Tests Test 05/24/18 17:58 05/24/18 21:13 05/25/18 07:31 05/25/18 11:52 Bedside Glucose 94 134 155 231 H Medications Medication Current Medications IV Flush (NS 3 ml) 3 ml PER PROTOCOL IV ; Start 05/23/18 at 20:30 Ondansetron HCl (Zofran Inj) 4 mg Q6H PRN IV NAUSEA/VOMITING; Start 05/23/18 at 20:30 Morphine Sulfate (morphine) 2 mg Q4H PRN IV .PAIN 7-10; Start 05/23/18 at 20:30 Enoxaparin Sodium (Lovenox) 30 mg DAILY SC Last administered on 05/25/18 08:55; Admin Dose 30 MG; Start 05/24/18 at 09:00 Clonidine (Catapres) 0.1 mg Q6H PRN PO SBP >160 Last administered on 05/24/18 05:10; Admin Dose 0.1 MG; Start 05/23/18 at 20:30; Status Hold Diagnostic Test (Pha) (Accu-Chek) 1 ea 02 XX ; Start 05/24/18 at 02:00 Insulin Aspart (Novolog Insulin Pen) 5 unit WITH MEALS SC Last administered on 05/25/18 12:00; Admin Dose 5 UNIT; Start 05/24/18 at 08:00 Aspirin (Halfprin) 81 mg DAILY PO Last administered on 05/25/18 08:38; Admin Dose 81 MG; Start 05/24/18 at 09:00 Atorvastatin Calcium (Lipitor) 40 mg QHS PO Last administered on 05/24/18 21:16; Admin Dose 40 MG; Start 05/23/18 at 21:00 Carvedilol (Coreg) 3.125 mg BID PO Last administered on 05/25/18 08:38; Admin Dose 3.125 MG; Start 05/23/18 at 21:00; Status Hold Ferrous Sulfate (Ferrous Sulfate (Ec)) 325 mg BID PO Last administered on 05/25/18 08:37; Admin Dose 325 MG; Start 05/23/18 at 21:00 Furosemide (Lasix) 20 mg DAILY PO Last administered on 05/25/18 08:37; Admin Dose 20 MG; Start 05/24/18 at 09:00 Metformin HCl (Glucophage) 850 mg BID WITH MEALS PO Last administered on 05/25/18 08:37; Admin Dose 850 MG; Start 05/23/18 at 21:00 Senna (Senokot) 2 tab QHS PO Last administered on 05/24/18at 21:17; Admin Dose 2 TAB; Start 05/23/18 at 21:00 Diagnostic Test (Pha) (Accu-Chek) 1 ea AC MEALS AND BEDTIME XX Last administered on 05/25/18at 11:55; Admin Dose 1 EA; Start 05/23/18 at 21:00 Insulin Aspart Prota 70%/Aspart 30% (Novolog Mix (70/ 30) Flexpen) 25 unit QPM SC Last administered on 05/24/18at 21:31; Admin Dose 25 UNIT; Start 05/23/18 at 21:00 Miscellaneous Information 1 ea NOTE XX ; Start 05/23/18 at 20:30 Glucose (Glutose) 15 gm Q15M PRN PO DECREASED GLUCOSE; Start 05/23/18 at 20:30 Glucose (Glutose) 22.5 gm Q15M PRN PO DECREASED GLUCOSE; Start 05/23/18 at 20:30 Dextrose (D50w Syringe) 25 ml Q15M PRN IV DECREASED GLUCOSE; Start 05/23/18 at 20:30 Dextrose (D50w Syringe) 50 ml Q15M PRN IV DECREASED GLUCOSE; Start 05/23/18 at 20:30 Glucagon (Glucagen) 1 mg Q15M PRN IM DECREASED GLUCOSE; Start 05/23/18 at 20:30 Glucose (Glutose) 15 gm Q15M PRN BUCCAL DECREASED GLUCOSE; Start 05/23/18 at 20:30 MCKAY ROSAS May 25, 2018 14:30
[2018-05-25] MEDS: ATORVASTATIN 40 MG TAB PO SCH (19:54)
[2018-05-25] MEDS: SENNA TAB PO SCH (19:54)
[2018-05-25] MEDS: INSULIN ASP PROT/ASPART (70/30) PEN SC SCH (20:03)
--- NOTE | 2018-05-25 21:33 | CONS ---
DATE OF ADMISSION: 05/23/2018 DATE OF CONSULTATION: 05/25/2018 REASON FOR CONSULTATION: Cardiomyopathy with severely depressed left ventricular ejection fraction. REQUESTING PHYSICIAN: Gaston Smith MD HISTORY OF PRESENT ILLNESS: Ms. Braga is a 62-year-old female with a history of diabetes mellitu s, hypertension, dyslipidemia, recent ST elevation [place], status post emergent 2-vessel CABG at [facility], , who presented with difficulty speaking and then numbness and weakness to her left hand cau sing her to dropped a plate. The patient subsequently presented to [facility] upon arrival, temperature 98.6, blood pressure markedly elevated 219/102, pulse 102, respiration 20 , satting 99%. The patient's labs, white blood cell count 10.2, hemoglobin 14.5, platelet count of 3 93. ESR 45. Sodium 143, potassium 4.4, creatinine 0.9, BUN 21. Troponin negative. INR of 0.91. P atient underwent a chest x-ray revealing no acute cardiopulmonary abnormalities. A head CT revealed mild atrophy, mild white matter disease compatible with chronic small vessel ischemia. A carotid Dop pler revealing at least moderate stenosis of the proximal right internal carotid artery 50 to 69% and a brain MRI that revealed multiple areas of acute infarct in the right posterior frontal, right mary etal and right posterior temporal occipital lobes. No significant vasogenic edema and mass effect or midline shift. The patient's electrocardiogram revealed normal sinus rhythm, rate 83 with normal ax is, nonspecific ST abnormalities and isolated PVC. The patient admitted to the floor and underwent a 2D echo, interpreted by myself, revealing a severe depressed EF of approximately 25% to 30% with mil d mitral and trace tricuspid regurgitation. The patient at this time has been admitted to the teleme try floor, whereby on telemetry, she has had sinus rhythm, no significant arrhythmias or pauses. The patient has been placed on aspirin with daily Lasix therapy and currently has her antihypertensives held and has been consulted by the neurology services. PAST MEDICAL HISTORY: As above in HPI. MEDICATIONS CURRENTLY IN HOSPITAL: 1. Lovenox 30 mg subcutaneously daily. 2. Aspirin 81 mg daily. 3. Lasix 20 mg daily. 4. Insulin sliding scale. 5. Lipitor 40 mg at bedtime. 6. Ferrous sulfate. 7. Metformin. 8. Senna. 9. P.r.n. Zofran. 10. P.r.n. morphine. ALLERGIES: NO KNOWN DRUG ALLERGIES. SOCIAL HISTORY: No current tobacco, ETOH or illicit drug use. FAMILY HISTORY: No history of sudden cardiac or early CAD. REVIEW OF SYSTEMS: As above in HPI. CONSTITUTIONAL: No fevers, chills. PULMONARY: No current shortness of breath. CARDIOVASCULAR: Congestive heart failure. No chest pain. GASTROINTESTINAL: No vomiting. GENITOURINARY: No hematuria. MUSCULOSKELETAL: Degenerative joint disease. PSYCHIATRIC: The patient denies depression. NEUROLOGIC: Acute cerebrovascular accident. ENDOCRINE: Diabetes mellitus. PHYSICAL EXAMINATION: VITAL SIGNS: Temperature 98.2, blood pressure 141/ , pulse 60, respiration 18, sat 99%. GENERAL: The patient is alert, awake, no acute distress. NECK: JVP approximately 9 cm water. CHEST: Fair air movement throughout. HEART: Regular rate and rhythm. Normal S1, S2. Laterally displaced PMI. ABDOMEN: Positive bowel sounds, soft. EXTREMITIES: No significant pitting edema, 1+ pulses bilateral posterior tibial. LABORATORIES: Most recently from the sodium 144, potassium 3.9, creatinine 1.0, BUN of 20. Tro ponin negative x1. LDL 76, HDL 44. White blood cell count 11.4, hemoglobin 12.4, platelet count 365 . IMAGING STUDIES: As above in HPI. No further imaging studies for my review at this time. ECG: As above in HPI. No further electrocardiograms for my review at this time. IMPRESSION: 1. Cardiomyopathy with severely depressed left ventricular ejection fraction approximately 25% to 30 % by echo. 2. History of recent ST elevation myocardial infarction. 3. History of coronary artery disease, status post CABG x2, January 2018. 4. Hypertension, mildly elevated with holding of antihypertensives at this time. 5. Dyslipidemia. 6. CVA, acute with left-sided weakness, improving. 7. Diabetes mellitus with uncontrolled blood sugars. 8. Dyslipidemia with low HDL. RECOMMENDATIONS: 1. At this time, we would maintain patient on telemetry monitoring to follow rhythm and rate control closely. 2. Continue the patient's aspirin prophylaxis for cardiovascular events. 3. Continue the patient's Lasix diuresis, following strict I's and O's, creatinine to grade diuresis closely. 3. The patient's carvedilol has been held and therefore possibly for permissive hypertension. We wi ll discussed with treating neurologist blood pressure goals prior to reinitiating a beta soto and then thereafter MARY inhibitor for treatment of patient's systolic dysfunction. 4. Follow the patient's blood sugars closely. 5. We will complete the patient's rule out for myocardial infarction to ensure the patient's constel lation of symptoms are not result in any recurrent acute myocardial infarction. 6. Ongoing neurologic followup and treatment. Thank you for allowing me to take part in the care of this patient. I will continue to follow along very closely with you, with recommendations to be made as the patient progressed through her [facility] clinical course. Dictated By: HANNAH PERES/JULIENNE Conf#: [id number] DID#: [id number] CC: ZOIE WINCHESTER MD; GASTON SMITH MD;*EndCC*
[2018-05-26] VITALS (10 sets, daily range): BP systolic 143–161; BP diastolic 67–73; PULSE 57–75; RESP 19–20
[2018-05-26] MEDS: ACCU-CHEK XX SCH ×5 (02:00→21:00)
[2018-05-26] MEDS: INSULIN ASPART [NOVOLOG] 3 ML PEN SC SCH ×3 (08:05→17:33)
[2018-05-26] MEDS: ASPIRIN (EC) 81 MG TAB PO SCH (08:15)
[2018-05-26] MEDS: FERROUS SULFATE (EC) 325 MG TAB PO SCH ×2 (08:15→20:07)
[2018-05-26] MEDS: metFORMIN 850 MG TAB PO SCH ×2 (08:15→17:57)
[2018-05-26] MEDS: FUROSEMIDE 20 MG TAB PO SCH (08:16)
[2018-05-26] MEDS: ENOXAPARIN 30 MG/0.3 ML SYG SC SCH (08:29)
--- NOTE | 2018-05-26 11:42 | CONS ---
Assessment/Plan Assessment/Plan Hospital Course 62 F c/ reported Hx of CAD s/p CABG in 03/21, and other cerebrovascular risk factors, who presents for evaluation of dysarthria and left arm weakness and numbness.. MRI brain confirmed acute R hemispheric infarcts..for which neurology is consulted. CUS was notable for moderate R ICA stenosis; CTA neck confirmed 60% R ICA stenosis.. Echo is notable for severely depressed EF A1C 7.9% ESR 45 RPR neg LDL 54; Trig 211 P: Cont asa/lipitor daily for secondary stroke prevention for now Vascular surgery evaluation for possible symptomatic R ICA stenosis PT/OT/ST as necessary Glucose control and other medical management per primary Will follow clinically Consultation Date/Type/Reason Admit Date/Time May 26, 2018 at 06:43 Type of Consult Neurology Reason for Consultation stroke Requesting Provider: MCKAY ROSAS Date/Time of Note DATE: 05/26/18 TIME: 11:42 24 HR Interval Summary Free Text/Dictation Continues acute care. Pt is without new complaints at this time. Exam Vital Signs Vitals Vital Signs Date Temp Pulse Resp B/P (MAP) Pulse Ox O2 O2 Flow FiO2 Time Delivery Rate 05/26/18 65 08:54 05/26/18 98.6 20 143/67 95 07:24 (92) 05/25/18 Room Air 15:07 Intake and Output 05/25/18 05/25/18 05/26/18 1515:00 23:00 07:00 IntakeIntake Total 960 ml 800 ml BalanceBalance 960 ml 800 ml Exam PE: Gen Appearance: No Apparent Distress HEENT: Normocephalic Cardiovascular: Regular rate Lungs: Clear bilaterally Abdomen: Soft Extremities: Dry NE: The patient was alert and oriented. Language was normal. Fund of knowledge was normal. Pupils were equal and reactive to light. There was no afferent pupillary defect. Visual shultz were normal. Funduscopic examination showed sharp disc margins and spontaneous venous pulsations. Extra-ocular movements were full. Ptosis was absent. There was no nystagmus. Facial sensation was normal. Face was symmetric with normal strength. Hearing was intact. Palate movements were normal. Neck strength was normal. There was normal tongue bulk and speed of movement. Tone was normal. Muscle bulk was normal. I did not see fasciculations. Arms and legs were strong. Sensation to light touch was diminished in her L thumb. Vibration sensation was normal. Temperature and pinprick sensation was normal. Rapid alternating movements were normal. There was no dysmetria. There was no intention tremor. Gait was deferred due to bedrest. Arm and leg reflexes were 2+ and symmetric. Merritt's sign was absent. Plantar responses were flexor. RADHA ANTONY NP May 26, 2018 11:42 GEOFFREY UP May 26, 2018 14:59
--- NOTE | 2018-05-26 14:13 | CONS ---
Consult Date/Type/Reason Admit Date/Time May 26, 2018 at 06:43 Initial Consult Date Requesting Provider: MCKAY ROSAS Date/Time of Note DATE: 05/26/18 TIME: 14:11 Subjective NO acute events - pt doing better overall - no CP now - no arrhythmia on tele. ROS: No fever, no chills, no nausea, no vomiting, no diarrhea/constipation No recent weight changes No chest pain, no PND, no orthopnea - improved SOB No dizziness, blurred vision No thirst, no heat or cold intolerance Objective Vitals Vital Signs Date Temp Pulse Resp B/P (MAP) Pulse Ox O2 O2 Flow FiO2 Time Delivery Rate 05/26/18 63 13:10 05/26/18 98.1 20 156/70 95 12:07 (98) 05/25/18 Room Air 15:07 Intake and Output 05/25/18 05/25/18 05/26/18 1515:00 23:00 07:00 IntakeIntake Total 960 ml 800 ml BalanceBalance 960 ml 800 ml Exam General: WN/WD/NAD, AOx 3 HEENT: Unicetric/atraumatic/EOMI (does not follow commands) NECK: JVD elevated, no thyromegaly Lymph: no lymphadenopathy HEART: regular with no S3, II/ systolic murmur at apex - post opm, PMI L LUNGS: Coarse sounds ABD: soft, NT, ND, +BS : Intact Neuro: non focal SKIN: chronic changes EXT: trace edema Results/Medications Result Diagram: 05/25/18 1409 05/24/18 0506 Results 24 hrs Laboratory Tests Test 05/25/18 17:37 05/25/18 19:56 05/26/18 00:44 05/26/18 01:54 Bedside Glucose 145 179 79 Troponin I 0.025 Test 05/26/18 04:07 05/26/18 05:00 05/26/18 05:16 05/26/18 07:53 Bedside Glucose 174 123 Urine Opiates Screen NEGATIVE Urine Barbiturates NEGATIVE Urine Amphetamines NEGATIVE Screen Urine NEGATIVE Benzodiazepines Screen Urine Cocaine Screen NEGATIVE Urine Cannabinoids NEGATIVE Troponin I 0.016 Triglycerides Level 211 H Cholesterol Level 137 LDL Cholesterol, 54 Calculated HDL Cholesterol 41 Cholesterol/HDL 3.3 Ratio Thyroid Stimulating 4.290 Hormone (TSH) Test 05/26/18 12:09 Bedside Glucose 118 Home Meds Reported Medications Insulin Isophan/Regular (Humulin 70/30) 100 Units/Ml Susp, 25 UNIT SC QPM, EA 05/23/18 Furosemide* (Furosemide*) 20 Mg Tablet, 20 MG PO DAILY, #30 TAB 05/23/18 Aspirin (Low Dose Aspirin) 81 Mg Tablet.dr, 81 MG PO DAILY, #30 TAB 05/23/18 Metformin Hcl* (Metformin Hcl*) 850 Mg Tablet, 850 MG PO TIDM A, #60 TAB 05/23/18 Sennosides* (Senna Lax*) 8.6 Mg Tablet, 2 TAB PO QHS, TAB 05/23/18 Atorvastatin* (Atorvastatin*) 40 Mg Tablet, 40 MG PO QHS, #30 TAB 05/23/18 Ferrous Sulfate* (Ferrous Sulfate*) 325 Mg Tabec, 325 MG PO BID, TAB 05/23/18 Carvedilol* (Carvedilol*) 3.125 Mg Tablet, 3.125 MG PO BID, #60 TAB 05/23/18 Discontinued Reported Medications Azithromycin* (Azithromycin*) 250 Mg Tablet, 250 MG PO DAILY for 5 Days, #6 TAB FOR 5 DAYS,LAST DATE 03/01/18 02/27/18 Irbesartan* (Irbesartan*) 150 Mg Tablet, 150 MG PO DAILY, TAB 02/27/18 Amlodipine Besylate* (Amlodipine Besylate*) 10 Mg Tablet, 10 MG PO DAILY, #30 TAB 02/27/18 Metformin Hcl* (Metformin Hcl*) 850 Mg Tablet, 850 MG PO AC D, #60 TAB 02/27/18 Insulin NPH Human Isophane (Humulin N) 100 Unit/1 Ml Vial, 15 UNIT SQ BID, VIAL 02/27/18 Insulin Regular, Human (Humulin R) 100 Unit/1 Ml Vial, 10 UNIT IJ BID, VIAL 02/27/18 Medications Current Medications IV Flush (NS 3 ml) 3 ml PER PROTOCOL IV ; Start 05/23/18 at 20:30 Ondansetron HCl (Zofran Inj) 4 mg Q6H PRN IV NAUSEA/VOMITING; Start 05/23/18 at 20:30 Morphine Sulfate (morphine) 2 mg Q4H PRN IV .PAIN 7-10; Start 05/23/18 at 20:30 Enoxaparin Sodium (Lovenox) 30 mg DAILY SC Last administered on 05/26/18 08:29; Admin Dose 30 MG; Start 05/24/18 at 09:00 Clonidine (Catapres) 0.1 mg Q6H PRN PO SBP >160 Last administered on 05/24/18 05:10; Admin Dose 0.1 MG; Start 05/23/18 at 20:30; Status Hold Diagnostic Test (Pha) (Accu-Chek) 1 ea 02 XX ; Start 05/24/18 at 02:00 Insulin Aspart (Novolog Insulin Pen) 5 unit WITH MEALS SC Last administered on 05/26/18 12:19; Admin Dose 5 UNIT; Start 05/24/18 at 08:00 Aspirin (Halfprin) 81 mg DAILY PO Last administered on 05/26/18 08:15; Admin Dose 81 MG; Start 05/24/18 at 09:00 Atorvastatin Calcium (Lipitor) 40 mg QHS PO Last administered on 05/25/18 19:54; Admin Dose 40 MG; Start 05/23/18 at 21:00 Carvedilol (Coreg) 3.125 mg BID PO Last administered on 05/25/18 08:38; Admin Dose 3.125 MG; Start 05/23/18 at 21:00; Status Hold Ferrous Sulfate (Ferrous Sulfate (Ec)) 325 mg BID PO Last administered on 05/26/18 08:15; Admin Dose 325 MG; Start 05/23/18 at 21:00 Furosemide (Lasix) 20 mg DAILY PO Last administered on 05/26/18 08:16; Admin Dose 20 MG; Start 05/24/18 at 09:00 Metformin HCl (Glucophage) 850 mg BID WITH MEALS PO Last administered on 05/26/18 08:15; Admin Dose 850 MG; Start 05/23/18 at 21:00 Senna (Senokot) 2 tab QHS PO Last administered on 05/25/18 19:54; Admin Dose 2 TAB; Start 05/23/18 at 21:00 Diagnostic Test (Pha) (Accu-Chek) 1 ea AC MEALS AND BEDTIME XX Last administered on 05/26/18 12:12; Admin Dose 1 EA; Start 05/23/18 at 21:00 Insulin Aspart Prota 70%/Aspart 30% (Novolog Mix (70/ 30) Flexpen) 25 unit QPM SC Last administered on 05/25/18at 20:03; Admin Dose 25 UNIT; Start 05/23/18 at 21:00 Miscellaneous Information 1 ea NOTE XX ; Start 05/23/18 at 20:30 Glucose (Glutose) 15 gm Q15M PRN PO DECREASED GLUCOSE; Start 05/23/18 at 20:30 Glucose (Glutose) 22.5 gm Q15M PRN PO DECREASED GLUCOSE; Start 05/23/18 at 20:30 Dextrose (D50w Syringe) 25 ml Q15M PRN IV DECREASED GLUCOSE; Start 05/23/18 at 20:30 Dextrose (D50w Syringe) 50 ml Q15M PRN IV DECREASED GLUCOSE; Start 05/23/18 at 20:30 Glucagon (Glucagen) 1 mg Q15M PRN IM DECREASED GLUCOSE; Start 05/23/18 at 20:30 Glucose (Glutose) 15 gm Q15M PRN BUCCAL DECREASED GLUCOSE; Start 05/23/18 at 20:30 Assessment/Plan Hospital Course (Demo Recall) 1. Cardiomyopathy with severely depressed left ventricular ejection fraction approximately 25% to 30% by echo- con't gentle diuresis, better now. Outpt ICD evaluation. 2. History of recent ST elevation myocardial infarction - postCABG 01/2018. 3. History of coronary artery disease, status post CABG x2, January 2018. 4. Hypertension, mildly elevated with holding of antihypertensives at this time. BP in good range now. 5. Dyslipidemia. 6. CVA, acute with left-sided weakness, improving - better now, PMD follows. 7. Diabetes mellitus with uncontrolled blood sugars. 8. Dyslipidemia with low HDL. PRASANNA PLUNKETT MD May 26, 2018 14:13
--- NOTE | 2018-05-26 17:50 | PN ---
Date/Time of Note Date/Time of Note DATE: 05/26/18 TIME: 17:47 Assessment/Plan VTE Prophylaxis Risk score (from Ns)>0 risk: 3 SCD applied (from Ns): No SCD contraindicated: low risk/ambulating Pharmacological prophylaxis: LMWH Lines/Catheters IV C[facility]ter Type [facility]from [facility] Urinary Cath still in place: No Assessment/Plan Hospital Course Assessment/Plan -Acute infarct with left upper extremity weakness and numbness. Continue aspirin, PT OT and speech therapist evaluation. Dr. Marshall is following in neurology consultation. -Symptomatic moderate stenosis (50-69%) at the proximal right internal carotid artery. Dr. Casanova is asked to see patient in vascular surgery consultation. -Coronary artery disease status post recent CABG by Dr Casanova. -Low EF per recent Echo. Dr Silva is asked to see pt in cardiology consultation. -Hypertension -Diabetes mellitus with hemoglobin A1c 7.9. Continue metformin and NovoLog. Further recommendations based on clinical course. Plan of care discussed with Dr. Nettles. Result Diagram: 05/25/18 1409 05/24/18 0506 Results 24hrs Laboratory Tests Test 05/25/18 19:56 05/26/18 00:44 05/26/18 01:54 05/26/18 04:07 Bedside Glucose 179 79 174 Troponin I 0.025 Test 05/26/18 05:00 05/26/18 05:16 05/26/18 07:53 05/26/18 12:09 Urine Opiates Screen NEGATIVE Urine Barbiturates NEGATIVE Urine Amphetamines NEGATIVE Screen Urine NEGATIVE Benzodiazepines Screen Urine Cocaine Screen NEGATIVE Urine Cannabinoids NEGATIVE Troponin I 0.016 Triglycerides Level 211 H Cholesterol Level 137 LDL Cholesterol, 54 Calculated HDL Cholesterol 41 Cholesterol/HDL 3.3 Ratio Thyroid Stimulating 4.290 Hormone (TSH) Bedside Glucose 123 118 Test 05/26/18 17:27 Bedside Glucose 122 Exam/Review of Systems Exam Vitals Vital Signs Date Temp Pulse Resp B/P (MAP) Pulse Ox O2 O2 Flow FiO2 Time Delivery Rate 05/26/18 68 16:25 05/26/18 98.1 20 148/67 97 15:21 (94) 05/25/18 Room Air 15:07 Intake and Output 05/25/18 05/25/18 05/26/18 1515:00 23:00 07:00 IntakeIntake Total 960 ml 800 ml BalanceBalance 960 ml 800 ml Exam Constitutional: alert, oriented Respiratory: clear to auscultation Cardiovascular: nl pulses Gastrointestinal: soft, non-tender Extremities: normal pulses Neurological: other (LUE weakness) Results Results 24hrs Laboratory Tests Test 05/25/18 19:56 05/26/18 00:44 05/26/18 01:54 05/26/18 04:07 Bedside Glucose 179 79 174 Troponin I 0.025 Test 05/26/18 05:00 05/26/18 05:16 05/26/18 07:53 05/26/18 12:09 Urine Opiates Screen NEGATIVE Urine Barbiturates NEGATIVE Urine Amphetamines NEGATIVE Screen Urine NEGATIVE Benzodiazepines Screen Urine Cocaine Screen NEGATIVE Urine Cannabinoids NEGATIVE Troponin I 0.016 Triglycerides Level 211 H Cholesterol Level 137 LDL Cholesterol, 54 Calculated HDL Cholesterol 41 Cholesterol/HDL 3.3 Ratio Thyroid Stimulating 4.290 Hormone (TSH) Bedside Glucose 123 118 Test 05/26/18 17:27 Bedside Glucose 122 Medications Medication Current Medications IV Flush (NS 3 ml) 3 ml PER PROTOCOL IV ; Start 05/23/18 at 20:30 Ondansetron HCl (Zofran Inj) 4 mg Q6H PRN IV NAUSEA/VOMITING; Start 05/23/18 at 20:30 Morphine Sulfate (morphine) 2 mg Q4H PRN IV .PAIN 7-10; Start 05/23/18 at 20:30 Enoxaparin Sodium (Lovenox) 30 mg DAILY SC Last administered on 05/26/18at 08:29; Admin Dose 30 MG; Start 05/24/18 at 09:00 Clonidine (Catapres) 0.1 mg Q6H PRN PO SBP >160 Last administered on 05/24/18at 05:10; Admin Dose 0.1 MG; Start 05/23/18 at 20:30; Status Hold Diagnostic Test (Pha) (Accu-Chek) 1 ea XX ; Start 05/24/18 at 02:00 Insulin Aspart (Novolog Insulin Pen) 5 unit WITH MEALS SC Last administered on 05/26/18at 12:19; Admin Dose 5 UNIT; Start 05/24/18 at 08:00 Aspirin (Halfprin) 81 mg DAILY PO Last administered on 05/26/18at 08:15; Admin Dose 81 MG; Start 05/24/18 at 09:00 Atorvastatin Calcium (Lipitor) 40 mg QHS PO Last administered on 05/25/18 19:54; Admin Dose 40 MG; Start 05/23/18 at 21:00 Carvedilol (Coreg) 3.125 mg BID PO Last administered on 05/25/18 08:38; Admin Dose 3.125 MG; Start 05/23/18 at 21:00; Status Hold Ferrous Sulfate (Ferrous Sulfate (Ec)) 325 mg BID PO Last administered on 05/26/18 08:15; Admin Dose 325 MG; Start 05/23/18 at 21:00 Furosemide (Lasix) 20 mg DAILY PO Last administered on 05/26/18 08:16; Admin Dose 20 MG; Start 05/24/18 at 09:00 Metformin HCl (Glucophage) 850 mg BID WITH MEALS PO Last administered on 05/26/18 08:15; Admin Dose 850 MG; Start 05/23/18 at 21:00 Senna (Senokot) 2 tab QHS PO Last administered on 05/25/18 19:54; Admin Dose 2 TAB; Start 05/23/18 at 21:00 Diagnostic Test (Pha) (Accu-Chek) 1 ea AC MEALS AND BEDTIME XX Last administe red on 05/26/18at 12:12; Admin Dose 1 EA; Start 05/23/18 at 21:00 Insulin Aspart Prota 70%/Aspart 30% (Novolog Mix (70/ 30) Flexpen) 25 unit QPM SC Last administered on 05/25/18 20:03; Admin Dose 25 UNIT; Start 05/23/18 at 21:00 Miscellaneous Information 1 ea NOTE XX ; Start 05/23/18 at 20:30 Glucose (Glutose) 15 gm Q15M PRN PO DECREASED GLUCOSE; Start 05/23/18 at 20:30 Glucose (Glutose) 22.5 gm Q15M PRN PO DECREASED GLUCOSE; Start 05/23/18 at 20:30 Dextrose (D50w Syringe) 25 ml Q15M PRN IV DECREASED GLUCOSE; Start 05/23/18 at 20:30 Dextrose (D50w Syringe) 50 ml Q15M PRN IV DECREASED GLUCOSE; Start 05/23/18 at 20:30 Glucagon (Glucagen) 1 mg Q15M PRN IM DECREASED GLUCOSE; Start 05/23/18 at 20:30 Glucose (Glutose) 15 gm Q15M PRN BUCCAL DECREASED GLUCOSE; Start 05/23/18 at 20:30 MCKAY ROSAS May 26, 2018 17:50
[2018-05-26] MEDS: ATORVASTATIN 40 MG TAB PO SCH (20:07)
[2018-05-26] MEDS: SENNA TAB PO SCH (20:07)
[2018-05-26] MEDS: INSULIN ASP PROT/ASPART (70/30) PEN SC SCH (20:12)
[2018-05-27] VITALS (9 sets, daily range): BP systolic 129–160; BP diastolic 59–69; PULSE 59–79; RESP 18–20
[2018-05-27] MEDS: ACCU-CHEK XX SCH ×5 (02:00→20:43)
[2018-05-27] MEDS: INSULIN ASPART [NOVOLOG] 3 ML PEN SC SCH ×3 (08:02→17:54)
[2018-05-27] MEDS: metFORMIN 850 MG TAB PO SCH ×2 (08:15→18:06)
[2018-05-27] MEDS: ASPIRIN (EC) 81 MG TAB PO SCH (08:15)
[2018-05-27] MEDS: FERROUS SULFATE (EC) 325 MG TAB PO SCH ×2 (08:15→20:24)
[2018-05-27] MEDS: FUROSEMIDE 20 MG TAB PO SCH (08:15)
[2018-05-27] MEDS: ENOXAPARIN 30 MG/0.3 ML SYG SC SCH (08:28)
--- NOTE | 2018-05-27 11:40 | CONS ---
Assessment/Plan Assessment/Plan Hospital Course 62 F c/ reported Hx of CAD s/p CABG in 03/21, and other cerebrovascular risk factors, who presents for evaluation of dysarthria and left arm weakness and numbness.. MRI brain confirmed acute R hemispheric infarcts..for which neurology is consulted. CUS was notable for moderate R ICA stenosis; CTA neck confirmed 60% R ICA stenosis.. Echo is notable for severely depressed EF A1C 7.9% ESR 45 RPR neg LDL 54; Trig 211 P: Cont asa/lipitor daily for secondary stroke prevention for now Vascular surgery evaluation for possible symptomatic R ICA stenosis PT/OT/ST as necessary Glucose control and other medical management per primary Will follow clinically Consultation Date/Type/Reason Admit Date/Time May 26, 2018 at 06:43 Type of Consult Neurology Reason for Consultation stroke Requesting Provider: MCKAY ROSAS Date/Time of Note DATE: 05/27/18 TIME: 11:40 Exam Vital Signs Vitals Vital Signs Date Temp Pulse Resp B/P (MAP) Pulse Ox O2 O2 Flow FiO2 Time Delivery Rate 05/27/18 97.3 63 20 145/69 98 Room Air 11:20 (94) Intake and Output 05/26/18 05/26/18 05/27/18 1515:00 23:00 07:00 IntakeIntake Total 750 ml 800 ml BalanceBalance 750 ml 800 ml Exam PE: Gen Appearance: No Apparent Distress HEENT: Normocephalic Cardiovascular: Regular rate Lungs: Clear bilaterally Abdomen: Soft Extremities: Dry NE: The patient was alert and oriented. Language was normal. Fund of knowledge was normal. Pupils were equal and reactive to light. There was no afferent pupillary defect. Visual shultz were normal. Funduscopic examination showed sharp disc margins and spontaneous venous pulsations. Extra-ocular movements were full. Ptosis was absent. There was no nystagmus. Facial sensation was normal. Face was symmetric with normal strength. Hearing was intact. Palate movements were normal. Neck strength was normal. There was normal tongue bulk and speed of movement. Tone was normal. Muscle bulk was normal. I did not see fasciculations. Arms and legs were strong. Sensation to light touch and vibration sensation was normal. Temperature and pinprick sensation was normal. Rapid alternating movements were normal. There was no dysmetria. There was no intention tremor. Gait was deferred due to bedrest. Arm and leg reflexes were 2+ and symmetric. Merritt's sign was absent. Plantar responses were flexor. RADHA ANTONY NP May 27, 2018 11:40 GEOFFREY UP May 27, 2018 14:42
--- NOTE | 2018-05-27 12:22 | CONS ---
Assessment/Plan Cardiology Heart Failure Type: Acute on Chronic Heart Failure Type: Systolic Assessment/Plan Hospital Course (Demo Recall) IMPRESSION: 1. Cardiomyopathy with severely depressed left ventricular ejection fraction approximately 25% to 30% by echo. 2. History of recent ST elevation myocardial infarction. 3. History of coronary artery disease, status post CABG x2, January 2018. 4. Hypertension, mildly elevated with holding of antihypertensives at this time. 5. Dyslipidemia. 6. CVA, acute with left-sided weakness, improving. 7. Diabetes mellitus with uncontrolled blood sugars. 8. Dyslipidemia with low HDL. Recc: -tele -Contineu coreg -start ACEI afterload reduction -Contineu daily alsix and follow volume status which appear euvolemic -ongoing neuro eval and treatment Consultation Date/Type/Reason Admit Date/Time May 26, 2018 at 06:43 Initial Consult Date 05/25/18 Type of Consult Cardiology Reason for Consultation cardiomyopathy Requesting Provider: MCKAY ROSAS Date/Time of Note DATE: 05/27/18 TIME: 12:16 Exam/Review of Systems Vital Signs Vitals Vital Signs Date Temp Pulse Resp B/P (MAP) Pulse Ox O2 O2 Flow FiO2 Time Delivery Rate 05/27/18 97.3 63 20 145/69 98 Room Air 11:20 (94) Intake and Output 05/26/18 05/26/18 05/27/18 1515:00 23:00 07:00 IntakeIntake Total 750 ml 800 ml BalanceBalance 750 ml 800 ml Exam Exam Review of Systems: CONSTITUTIONAL: No fevers, chills. PULMONARY: No sob CARDIOVASCULAR: No chest pain/palpitations GASTROINTESTINAL: No nausea/vomiting. GENITOURINARY: No hematuria/dysuria. MUSCULOSKELETAL: No myagias/arthalgias. PSYCHIATRIC: The patient denies depression. NEUROLOGIC: No weakness Constitutional: alert Psych: no complaints Head: normocephalic ENMT: mucosa pink and moist Neck: supple, jvd (9 cm water) Respiratory: clear to auscultation Cardiovascular: regular rate and rhythm Gastrointestinal: soft, non-tender Musculoskeletal: muscle tone (normal) Extremities: edema (none) Neurological: other (No focal deficits) Labs Result Diagram: 05/25/18 1409 05/24/18 0506 Results 24hrs Laboratory Tests Test 05/26/18 17:27 05/26/18 20:05 05/27/18 01:41 05/27/18 06:36 Bedside Glucose 122 122 79 148 Test 05/27/18 07:42 05/27/18 12:11 Bedside Glucose 157 142 Medications Medications Current Medications IV Flush (NS 3 ml) 3 ml PER PROTOCOL IV ; Start 05/23/18 at 20:30 Ondansetron HCl (Zofran Inj) 4 mg Q6H PRN IV NAUSEA/VOMITING; Start 05/23/18 at 20:30 Morphine Sulfate (morphine) 2 mg Q4H PRN IV .PAIN 7-10; Start 05/23/18 at 20:30 Enoxaparin Sodium (Lovenox) 30 mg DAILY SC Last administered on 05/27/18 08:28; Admin Dose 30 MG; Start 05/24/18 at 09:00 Clonidine (Catapres) 0.1 mg Q6H PRN PO SBP >160 Last administered on 05/24/18 05:10; Admin Dose 0.1 MG; Start 05/23/18 at 20:30 Diagnostic Test (Pha) (Accu-Chek) 1 ea 02 XX ; Start 05/24/18 at 02:00 Insulin Aspart (Novolog Insulin Pen) 5 unit WITH MEALS SC Last administered on 05/27/18 08:02; Admin Dose 5 UNIT; Start 05/24/18 at 08:00 Aspirin (Halfprin) 81 mg DAILY PO Last administered on 05/27/18 08:15; Admin Dose 81 MG; Start 05/24/18 at 09:00 Atorvastatin Calcium (Lipitor) 40 mg QHS PO Last administered on 05/26/18 20:07; Admin Dose 40 MG; Start 05/23/18 at 21:00 Carvedilol (Coreg) 3.125 mg BID PO Last administered on 05/27/18 10:56; Admin Dose 3.125 MG; Start 05/23/18 at 21:00 Ferrous Sulfate (Ferrous Sulfate (Ec)) 325 mg BID PO Last administered on 05/27/18 08:15; Admin Dose 325 MG; Start 05/23/18 at 21:00 Furosemide (Lasix) 20 mg DAILY PO Last administered on 05/27/18 08:15; Admin Dose 20 MG; Start 05/24/18 at 09:00 Metformin HCl (Glucophage) 850 mg BID WITH MEALS PO Last administered on 05/27/18 08:15; Admin Dose 850 MG; Start 05/23/18 at 21:00 Senna (Senokot) 2 tab QHS PO Last administered on 05/26/18 20:07; Admin Dose 2 TAB; Start 05/23/18 at 21:00 Diagnostic Test (Pha) (Accu-Chek) 1 ea AC MEALS AND BEDTIME XX Last administered on 05/27/18 12:10; Admin Dose 1 EA; Start 05/23/18 at 21:00 Insulin Aspart Prota 70%/Aspart 30% (Novolog Mix (70/ 30) Flexpen) 25 unit QPM SC Last administered on 05/26/18 20:12; Admin Dose 25 UNIT; Start 05/23/18 at 21:00 Miscellaneous Information 1 ea NOTE XX ; Start 05/23/18 at 20:30 Glucose (Glutose) 15 gm Q15M PRN PO DECREASED GLUCOSE; Start 05/23/18 at 20:30 Glucose (Glutose) 22.5 gm Q15M PRN PO DECREASED GLUCOSE; Start 05/23/18 at 20:30 Dextrose (D50w Syringe) 25 ml Q15M PRN IV DECREASED GLUCOSE; Start 05/23/18 at 20:30 Dextrose (D50w Syringe) 50 ml Q15M PRN IV DECREASED GLUCOSE; Start 05/23/18 at 20:30 Glucagon (Glucagen) 1 mg Q15M PRN IM DECREASED GLUCOSE; Start 05/23/18 at 20:30 Glucose (Glutose) 15 gm Q15M PRN BUCCAL DECREASED GLUCOSE; Start 05/23/18 at 20:30 HANNAH STRAUSS May 27, 2018 12:21
--- NOTE | 2018-05-27 13:18 | PN ---
Date/Time of Note Date/Time of Note DATE: 05/27/18 TIME: 13:09 Assessment/Plan VTE Prophylaxis Risk score (from Nsg)>0 risk: 3 SCD applied (from Ns): No SCD contraindicated: low risk/ambulating Pharmacological prophylaxis: LMWH Lines/Catheters IV Catheter Type (from [facility]): Saline Lock Urinary Cath still in place: No Assessment/Plan Hospital Course Patient remains hemodynamically stable continues to have left upper extremity numbness and weakness pending vascular surgery evaluation for symptomatic moderate stenosis of the right internal carotid artery. Discussed with RN. Blood sugar is adequately controlled. Assessment/Plan -Acute infarct with left upper extremity weakness and numbness. Continue aspirin, PT OT and speech therapist evaluation. Dr. Marshall is following in neurology consultation. -Symptomatic moderate stenosis (50-69%) at the proximal right internal carotid artery. Dr. Casanova is asked to see patient in vascular surgery consultation. -Coronary artery disease status post recent CABG by Dr Casanova. -Low EF per recent Echo. Dr Silva is asked to see pt in cardiology consultation. -Hypertension -Diabetes mellitus with hemoglobin A1c 7.9. Continue metformin and NovoLog. -Hyperlipidemia, continue statin. Further recommendations based on clinical course. Plan of care discussed with Dr. Nettles. Result Diagram: 05/25/18 1409 05/24/18 0506 Results 24hrs Laboratory Tests Test 05/26/18 17:27 05/26/18 20:05 05/27/18 01:41 05/27/18 06:36 Bedside Glucose 122 122 79 148 Test 05/27/18 07:42 05/27/18 12:11 Bedside Glucose 157 142 Exam/Review of Systems Exam Vitals Vital Signs Date Temp Pulse Resp B/P (MAP) Pulse Ox O2 O2 Flow FiO2 Time Delivery Rate 05/27/18 97.3 63 20 145/69 98 Room Air 11:20 (94) Intake and Output 05/26/18 05/26/18 05/27/18 1515:00 23:00 07:00 IntakeIntake Total 750 ml 800 ml BalanceBalance 750 ml 800 ml Exam Constitutional: alert, oriented Respiratory: clear to auscultation Cardiovascular: nl pulses Gastrointestinal: soft, non-tender Extremities: normal pulses Neurological: other (LUE weakness) Results Results 24hrs Laboratory Tests Test 05/26/18 17:27 05/26/18 20:05 05/27/18 01:41 05/27/18 06:36 Bedside Glucose 122 122 79 148 Test 05/27/18 07:42 05/27/18 12:11 Bedside Glucose 157 142 Medications Medication Current Medications IV Flush (NS 3 ml) 3 ml PER PROTOCOL IV ; Start 05/23/18 at 20:30 Ondansetron HCl (Zofran Inj) 4 mg Q6H PRN IV NAUSEA/VOMITING; Start 05/23/18 at 20:30 Morphine Sulfate (morphine) 2 mg Q4H PRN IV .PAIN 7-10; Start 05/23/18 at 20:30 Enoxaparin Sodium (Lovenox) 30 mg DAILY SC Last administered on 05/27/18at 0 8:28; Admin Dose 30 MG; Start 05/24/18 at 09:00 Clonidine (Catapres) 0.1 mg Q6H PRN PO SBP >160 Last administered on 05/24/18 05:10; Admin Dose 0.1 MG; Start 05/23/18 at 20:30 Diagnostic Test (Pha) (Accu-Chek) 1 ea 02 XX ; Start 05/24/18 at 02:00 Insulin Aspart (Novolog Insulin Pen) 5 unit WITH MEALS SC Last administered on 05/27/18 12:18; Admin Dose 5 UNIT; Start 05/24/18 at 08:00 Aspirin (Halfprin) 81 mg DAILY PO Last administered on 05/27/18 08:15; Admin Dose 81 MG; Start 05/24/18 at 09:00 Atorvastatin Calcium (Lipitor) 40 mg QHS PO Last administered on 05/26/18 20:07; Admin Dose 40 MG; Start 05/23/18 at 21:00 Carvedilol (Coreg) 3.125 mg BID PO Last administered on 05/27/18 10:56; Admin Dose 3.125 MG; Start 05/23/18 at 21:00 Ferrous Sulfate (Ferrous Sulfate (Ec)) 325 mg BID PO Last administered on 05/27/18 08:15; Admin Dose 325 MG; Start 05/23/18 at 21:00 Furosemide (Lasix) 20 mg DAILY PO Last administered on 05/27/18 08:15; Admin Dose 20 MG; Start 05/24/18 at 09:00 Metformin HCl (Glucophage) 850 mg BID WITH MEALS PO Last administered on 05/27/18 08:15; Admin Dose 850 MG; Start 05/23/18 at 21:00 Senna (Senokot) 2 tab QHS PO Last administered on 05/26/18at 20:07; Admin Dose 2 TAB; Start 05/23/18 at 21:00 Diagnostic Test (Pha) (Accu-Chek) 1 ea AC MEALS AND BEDTIME XX Last administered on 05/27/18at 12:10; Admin Dose 1 EA; Start 05/23/18 at 21:00 Insulin Aspart Prota 70%/Aspart 30% (Novolog Mix (70/ 30) Flexpen) 25 unit QPM SC Last administered on 05/26/18at 20:12; Admin Dose 25 UNIT; Start 05/23/18 at 21:00 Miscellaneous Information 1 ea NOTE XX ; Start 05/23/18 at 20:30 Glucose (Glutose) 15 gm Q15M PRN PO DECREASED GLUCOSE; Start 05/23/18 at 20:30 Glucose (Glutose) 22.5 gm Q15M PRN PO DECREASED GLUCOSE; Start 05/23/18 at 20:30 Dextrose (D50w Syringe) 25 ml Q15M PRN IV DECREASED GLUCOSE; Start 05/23/18 at 20:30 Dextrose (D50w Syringe) 50 ml Q15M PRN IV DECREASED GLUCOSE; Start 05/23/18 at 20:30 Glucagon (Glucagen) 1 mg Q15M PRN IM DECREASED GLUCOSE; Start 05/23/18 at 20:30 Glucose (Glutose) 15 gm Q15M PRN BUCCAL DECREASED GLUCOSE; Start 05/23/18 at 20:30 Benazepril HCl (Lotensin) 10 mg DAILY PO ; Start 05/28/18 at 09:00 MCKAY ROSAS May 27, 2018 13:18
--- NOTE | 2018-05-27 16:45 | CONS ---
DATE OF ADMISSION: 05/26/2018 DATE OF CONSULTATION: HISTORY OF PRESENT ILLNESS: Mrs. Braga is a 62-year-old female who I was asked to see in consultation because of an ischemic stroke. She presented here about 3 days ago with symptoms of difficulty with her speech and then numbness and incoordination of her left arm. It has tended to improve since she has been here. She went through a number of imaging studies of the brain. MRI confirmed multiple areas of acute infarct in the right posterior frontal, right parietal and right posterior temporal and occipital lobes, acute infarct involving the right postcentral gyrus with petechial hemorrhages. Despite these findings, she has clinically improved and feels like she has no limitation right now. Function has returned as well as her speech. She had a carotid Doppler that showed a 50% to 60% right internal carotid stenosis and she had a CT angiogram that confirmed an estimated 60% stenosis of the proximal right internal carotid artery and 30% stenosis of the proximal left internal carotid artery. There was no specific ulcerated plaque seen in the vessel. She has not had any symptoms of TIAs or strokes prior to this. She does have known significant heart disease and had an ischemic cardiomyopathy with severe coronary artery disease, placement of the intraaortic balloon with marked reduction in ejection fraction of 20% or less. She underwent triple-vessel coronary revascularization by myself, recovered well and has clinically been doing well up until the current problem. To the best of my knowledge, she did not experience atrial fibrillation, has not had any anticoagulation medications since discharge other than the aspirin. PAST SURGICAL HISTORY: Included section. No other operations. REVIEW OF SYSTEMS: Otherwise essentially negative. FAMILY HISTORY: There is no family history of heart disease. PAST MEDICAL HISTORY: She does have diabetes, however, hypertension and hypercholesterolemia. MEDICATIONS PRIOR TO COMING IN HOSPITAL: Include: 1. Iron. 2. Atorvastatin. 3. Carvedilol. 4. Aspirin. 5. Furosemide. 6. Insulin. 7. Metformin. PHYSICAL EXAMINATION: GENERAL: She is awake and alert. VITAL SIGNS: Blood pressure 145/69, heart rate of 63 and regular. HEENT: Eyes are PERRL. Extraocular movements are intact Mouth: No oral lesions. Tongue is midline. NECK: No bruits were heard. LUNG: Elizabeth are entirely clear. HEART: Regular rate, rhythm without rubs or murmurs. Pulses are good in the radial, femoral and left pedal. I have trouble feeling the right pedal. She has well healed sternotomy scar. ABDOMEN: Without masses or tenderness. EXTREMITIES: She has a venectomy scar in the left upper leg. ASSESSMENT AND PLAN: Acute multiple embolic strokes involving the right hemisphere in the context of moderate stenosis of right internal carotid about 50% to 60% without ulcerative plaque. However, she does have a poor left ventricular function and may have had episodes of atrial fibrillation that have not been documented in the past. I would recommend that she undergo a transesophageal echo to rule out any intraatrial and intraventricular thrombus which she certainly has at some risk of having for the simple reason that if she does have evidence of such, she should be on either Eliquis or Coumadin rather just taking an aspirin. As regards to her right internal carotid at this time, I would recommend just continuing to observe. She has continued episodes and there is no evidence of clot inside the heart. It would not be unreasonable to consider right carotid endarterectomy. Thank you for allowing her to see us. Dictated By: NALDO EMERY MD MS/NTS Conf#: [id number] DID#: [id number] CC: ZOIE WINCHESTER MD; GASTON SMITH MD;*MaríaCC* MTDD
[2018-05-27] MEDS: SENNA TAB PO SCH (20:24)
[2018-05-27] MEDS: ATORVASTATIN 40 MG TAB PO SCH (20:24)
[2018-05-27] MEDS: INSULIN ASP PROT/ASPART (70/30) PEN SC SCH (20:31)
[2018-05-28] VITALS (9 sets, daily range): BP systolic 108–152; BP diastolic 57–72; PULSE 60–83; RESP 16–19
[2018-05-28] MEDS: ACCU-CHEK XX SCH ×5 (02:00→21:47)
[2018-05-28] MEDS: INSULIN ASPART [NOVOLOG] 3 ML PEN SC SCH ×4 (07:50→17:19)
[2018-05-28] MEDS: metFORMIN 850 MG TAB PO SCH ×2 (08:00→17:13)
[2018-05-28] MEDS: FERROUS SULFATE (EC) 325 MG TAB PO SCH ×2 (08:08→22:01)
[2018-05-28] MEDS: BENAZEPRIL 10 MG TAB PO SCH (09:00)
[2018-05-28] MEDS: ASPIRIN (EC) 81 MG TAB PO SCH (09:00)
[2018-05-28] MEDS: FUROSEMIDE 20 MG TAB PO SCH (09:00)
[2018-05-28] MEDS: ENOXAPARIN 30 MG/0.3 ML SYG SC SCH (09:00)
--- NOTE | 2018-05-28 13:58 | CONS ---
Assessment/Plan Cardiology Heart Failure Type: Acute on Chronic Heart Failure Type: Systolic Assessment/Plan Hospital Course (Demo Recall) IMPRESSION: 1. Cardiomyopathy with severely depressed left ventricular ejection fraction approximately 25% to 30% by echo. 2. History of recent ST elevation myocardial infarction. 3. History of coronary artery disease, status post CABG x2, January 2018. 4. Hypertension, mildly elevated with holding of antihypertensives at this time. 5. Dyslipidemia. 6. CVA, acute with left-sided weakness, improving. 7. Diabetes mellitus with uncontrolled blood sugars. 8. Dyslipidemia with low HDL. Recc: -tele -Contineu coreg -start ACEI afterload reduction -Continue daily lasix and follow volume status which appear euvolemic -ongoing neuro eval and treatment -scheduled for CHERYL tomorrow if patient is agreeable to remaining in house and states that she wants to leave today Consultation Date/Type/Reason Admit Date/Time May 26, 2018 at 06:43 Initial Consult Date 05/25/18 Type of Consult Cardiology Reason for Consultation cardiomyopathy low EF Requesting Provider: MCKAY ROSAS Date/Time of Note DATE: 05/28/18 TIME: 13:57 Exam/Review of Systems Vital Signs Vitals Vital Signs Date Temp Pulse Resp B/P (MAP) Pulse Ox O2 O2 Flow FiO2 Time Delivery Rate 05/28/18 74 12:32 05/28/18 Room Air 12:31 05/28/18 98.2 18 152/72 97 11:36 (98) Intake and Output 05/27/18 05/27/18 05/28/18 1515:00 23:00 07:00 IntakeIntake Total 940 ml 1000 ml BalanceBalance 940 ml 1000 ml Exam Exam Review of Systems: CONSTITUTIONAL: No fevers, chills. PULMONARY: No sob CARDIOVASCULAR: No chest pain/palpitations GASTROINTESTINAL: No nausea/vomiting. GENITOURINARY: No hematuria/dysuria. MUSCULOSKELETAL: No myagias/arthalgias. PSYCHIATRIC: The patient denies depression. NEUROLOGIC: No weakness Constitutional: alert, oriented Psych: no complaints Head: normocephalic ENMT: mucosa pink and moist Neck: supple, jvd (9 cm water) Respiratory: diminished breath sounds Cardiovascular: regular rate and rhythm Gastrointestinal: soft, non-tender Musculoskeletal: muscle tone (normal) Extremities: edema (none) Neurological: other (No focal deficts) Labs Result Diagram: 05/25/18 1409 05/24/18 0506 Results 24hrs Laboratory Tests Test 05/27/18 17:47 05/27/18 20:26 05/28/18 02:10 05/28/18 06:07 Bedside Glucose 128 188 77 154 Test 05/28/18 12:02 Bedside Glucose 158 Medications Medications Current Medications IV Flush (NS 3 ml) 3 ml PER PROTOCOL IV ; Start 05/23/18 at 20:30 Ondansetron HCl (Zofran Inj) 4 mg Q6H PRN IV NAUSEA/VOMITING; Start 05/23/18 at 20:30 Morphine Sulfate (morphine) 2 mg Q4H PRN IV .PAIN 7-10; Start 05/23/18 at 20:30 Enoxaparin Sodium (Lovenox) 30 mg DAILY SC Last administered on 05/27/18 08:28; Admin Dose 30 MG; Start 05/24/18 at 09:00 Clonidine (Catapres) 0.1 mg Q6H PRN PO SBP >160 Last administered on 05/24/18at 05:10; Admin Dose 0.1 MG; Start 05/23/18 at 20:30 Diagnostic Test (Pha) (Accu-Chek) 1 ea 02 XX ; Start 05/24/18 at 02:00 Insulin Aspart (Novolog Insulin Pen) 5 unit WITH MEALS SC Last administered on 05/27/18 17:54; Admin Dose 5 UNIT; Start 05/24/18 at 08:00 Aspirin (Halfprin) 81 mg DAILY PO Last administered on 05/27/18 08:15; Admin Dose 81 MG; Start 05/24/18 at 09:00 Atorvastatin Calcium (Lipitor) 40 mg QHS PO Last administered on 05/27/18 20:24; Admin Dose 40 MG; Start 05/23/18 at 21:00 Carvedilol (Coreg) 3.125 mg BID PO Last administered on 05/27/18 20:24; Admin Dose 3.125 MG; Start 05/23/18 at 21:00 Ferrous Sulfate (Ferrous Sulfate (Ec)) 325 mg BID PO Last administered on 05/27/18 20:24; Admin Dose 325 MG; Start 05/23/18 at 21:00 Furosemide (Lasix) 20 mg DAILY PO Last administered on 05/27/18 08:15; Admin Dose 20 MG; Start 05/24/18 at 09:00 Metformin HCl (Glucophage) 850 mg BID WITH MEALS PO Last administered on 05/27/18 18:06; Admin Dose 850 MG; Start 05/23/18 at 21:00 Senna (Senokot) 2 tab QHS PO Last administered on 05/27/18 20:24; Admin Dose 2 TAB; Start 05/23/18 at 21:00 Diagnostic Test (Pha) (Accu-Chek) 1 ea AC MEALS AND BEDTIME XX Last administered on 05/27/18at 17:53; Admin Dose 1 EA; Start 05/23/18 at 21:00 Miscellaneous Information 1 ea NOTE XX ; Start 05/23/18 at 20:30 Glucose (Glutose) 15 gm Q15M PRN PO DECREASED GLUCOSE; Start 05/23/18 at 20:30 Glucose (Glutose) 22.5 gm Q15M PRN PO DECREASED GLUCOSE; Start 05/23/18 at 20:30 Dextrose (D50w Syringe) 25 ml Q15M PRN IV DECREASED GLUCOSE; Start 05/23/18 at 20:30 Dextrose (D50w Syringe) 50 ml Q15M PRN IV DECREASED GLUCOSE; Start 05/23/18 at 20:30 Glucagon (Glucagen) 1 mg Q15M PRN IM DECREASED GLUCOSE; Start 05/23/18 at 20:30 Glucose (Glutose) 15 gm Q15M PRN BUCCAL DECREASED GLUCOSE; Start 05/23/18 at 20:30 Benazepril HCl (Lotensin) 10 mg DAILY PO ; Start 05/28/18 at 09:00 Insulin Aspart Prota 70%/Aspart 30% (Novolog Mix (70/ 30) Flexpen) 20 unit QPM SC Last administered on 05/27/18at 20:31; Admin Dose 20 UNIT; Start 05/27/18 at 21:00 HANNAH STRAUSS May 28, 2018 13:58
--- NOTE | 2018-05-28 17:02 | PN ---
Date/Time of Note Date/Time of Note DATE: 05/28/18 TIME: 17:01 Assessment/Plan VTE Prophylaxis Risk score (from Ns)>0 risk: 6 SCD applied (from Ns): Yes Pharmacological prophylaxis: LMWH Lines/Catheters [facility] Saline Lock Urinary Cath still in place: No Assessment/Plan Hospital Course No change in patient's condition, status post evaluation by Dr. Casanova in vascular surgery with recommendations for CHERYL, plan for CHERYL tomorrow. Assessment/Plan -Acute infarct with left upper extremity weakness and numbness. Continue aspirin, PT OT and speech therapist evaluation. Dr. Marshall is following in neurology consultation. -Symptomatic moderate stenosis (50-69%) at the proximal right internal carotid artery. Dr. Casanova is asked to see patient in vascular surgery consultation. -Coronary artery disease status post recent CABG by Dr Casanova. -Low EF per recent Echo. Dr Silva is following in cardiology consultation. -Hypertension -Diabetes mellitus with hemoglobin A1c 7.9. Continue metformin and NovoLog. -Hyperlipidemia, continue statin. Further recommendations based on clinical course. Plan of care discussed with Dr. Nettles. Result Diagram: 05/25/18 1409 05/24/18 0506 Results 24hrs Laboratory Tests Test 05/27/18 17:47 05/27/18 20:26 05/28/18 02:10 05/28/18 06:07 Bedside Glucose 128 188 77 154 Test 05/28/18 12:02 Bedside Glucose 158 Exam/Review of Systems Exam Vitals Vital Signs Date Temp Pulse Resp B/P (MAP) Pulse Ox O2 O2 Flow FiO2 Time Delivery Rate 05/28/18 60 16:34 05/28/18 Room Air 16:24 05/28/18 98.3 18 135/63 97 15:34 (87) Intake and Output 05/27/18 05/27/18 05/28/18 1414:59 22:59 06:59 IntakeIntake Total 940 ml 1000 ml BalanceBalance 940 ml 1000 ml Exam Constitutional: alert, oriented Respiratory: clear to auscultation Cardiovascular: nl pulses Gastrointestinal: soft, non-tender Extremities: normal pulses Neurological: other (LUE weakness) Results Results 24hrs Laboratory Tests Test 05/27/18 17:47 05/27/18 20:26 05/28/18 02:10 05/28/18 06:07 Bedside Glucose 128 188 77 154 Test 05/28/18 12:02 Bedside Glucose 158 Medications Medication Current Medications IV Flush (NS 3 ml) 3 ml PER PROTOCOL IV ; Start 05/23/18 at 20:30 Ondansetron HCl (Zofran Inj) 4 mg Q6H PRN IV NAUSEA/VOMITING; Start 05/23/18 at 20:30 Morphine Sulfate (morphine) 2 mg Q4H PRN IV .PAIN 7-10; Start 05/23/18 at 20:30 Enoxaparin Sodium (Lovenox) 30 mg DAILY SC Last administered on 05/27/18 08:28; Admin Dose 30 MG; Start 05/24/18 at 09:00 Clonidine (Catapres) 0.1 mg Q6H PRN PO SBP >160 Last administered on 05/24/18 05:10; Admin Dose 0.1 MG; Start 05/23/18 at 20:30 Diagnostic Test (Pha) (Accu-Chek) 1 ea 02 XX ; Start 05/24/18 at 02:00 Insulin Aspart (Novolog Insulin Pen) 5 unit WITH MEALS SC Last administered on 05/27/18 17:54; Admin Dose 5 UNIT; Start 05/24/18 at 08:00 Aspirin (Halfprin) 81 mg DAILY PO Last administered on 05/27/18 08:15; Admin Dose 81 MG; Start 05/24/18 at 09:00 Atorvastatin Calcium (Lipitor) 40 mg QHS PO Last administered on 05/27/18 20:24; Admin Dose 40 MG; Start 05/23/18 at 21:00 Carvedilol (Coreg) 3.125 mg BID PO Last administered on 05/27/18 20:24; Admin Dose 3.125 MG; Start 05/23/18 at 21:00 Ferrous Sulfate (Ferrous Sulfate (Ec)) 325 mg BID PO Last administered on 05/27/18 20:24; Admin Dose 325 MG; Start 05/23/18 at 21:00 Furosemide (Lasix) 20 mg DAILY PO Last administered on 05/27/18 08:15; Admin Dose 20 MG; Start 05/24/18 at 09:00 Metformin HCl (Glucophage) 850 mg BID WITH MEALS PO Last administered on 3/27/19at 18:06; Admin Dose 850 MG; Start 05/23/18 at 21:00 Senna (Senokot) 2 tab QHS PO Last administered on 05/27/18at 20:24; Admin Dose 2 TAB; Start 05/23/18 at 21:00 Diagnostic Test (Pha) (Accu-Chek) 1 ea AC MEALS AND BEDTIME XX Last administered on 05/27/18at 17:53; Admin Dose 1 EA; Start 05/23/18 at 21:00 Miscellaneous Information 1 ea NOTE XX ; Start 05/23/18 at 20:30 Glucose (Glutose) 15 gm Q15M PRN PO DECREASED GLUCOSE; Start 05/23/18 at 20:30 Glucose (Glutose) 22.5 gm Q15M PRN PO DECREASED GLUCOSE; Start 05/23/18 at 20:30 Dextrose (D50w Syringe) 25 ml Q15M PRN IV DECREASED GLUCOSE; Start 05/23/18 at 20:30 Dextrose (D50w Syringe) 50 ml Q15M PRN IV DECREASED GLUCOSE; Start 05/23/18 at 20:30 Glucagon (Glucagen) 1 mg Q15M PRN IM DECREASED GLUCOSE; Start 05/23/18 at 20:30 Glucose (Glutose) 15 gm Q15M PRN BUCCAL DECREASED GLUCOSE; Start 05/23/18 at 20:30 Benazepril HCl (Lotensin) 10 mg DAILY PO ; Start 05/28/18 at 09:00 Insulin Aspart Prota 70%/Aspart 30% (Novolog Mix (70/ 30) Flexpen) 20 unit QPM SC Last administered on 05/27/18at 20:31; Admin Dose 20 UNIT; Start 05/27/18 at 21:00 MCKAY ROSAS May 28, 2018 17:02
--- NOTE | 2018-05-28 17:37 | CONS ---
Assessment/Plan Assessment/Plan Hospital Course 62 F c/ reported Hx of CAD s/p CABG in 03/21, and other cerebrovascular risk factors, who presents for evaluation of dysarthria and left arm weakness and numbness.. MRI brain confirmed acute R hemispheric infarcts..for which neurology is consulted. CUS was notable for moderate R ICA stenosis; CTA neck confirmed 60% R ICA stenosis.. Echo is notable for severely depressed EF A1C 7.9% ESR 45 RPR neg LDL 54; Trig 211 P: Cont asa/lipitor daily for secondary stroke prevention for now R ICA stenosis management per vascular sx PT/OT/ST as necessary Glucose control and other medical management per primary Will follow clinically Consultation Date/Type/Reason Admit Date/Time May 26, 2018 at 06:43 Type of Consult Neurology Reason for Consultation stroke Requesting Provider: MCKAY ROSAS Date/Time of Note DATE: 05/28/18 TIME: 17:35 24 HR Interval Summary Free Text/Dictation Continues acute care. Exam Vital Signs Vitals Vital Signs Date Temp Pulse Resp B/P (MAP) Pulse Ox O2 O2 Flow FiO2 Time Delivery Rate 05/28/18 60 16:34 05/28/18 Room Air 16:24 05/28/18 98.3 18 135/63 97 15:34 (87) Intake and Output 05/27/18 05/27/18 05/28/18 1515:00 23:00 07:00 IntakeIntake Total 940 ml 1000 ml BalanceBalance 940 ml 1000 ml Exam PE: Gen Appearance: No Apparent Distress HEENT: Normocephalic Cardiovascular: Regular rate Lungs: Clear bilaterally Abdomen: Soft Extremities: Dry NE: The patient was alert and oriented. Language was normal. Fund of knowledge was normal. Pupils were equal and reactive to light. There was no afferent pupillary defect. Visual shultz were normal. Funduscopic examination showed sharp disc margins and spontaneous venous pulsations. Extra-ocular movements were full. Ptosis was absent. There was no nystagmus. Facial sensation was normal. Face was symmetric with normal strength. Hearing was intact. Palate movements were normal. Neck strength was normal. There was normal tongue bulk and speed of movement. Tone was normal. Muscle bulk was normal. I did not see fasciculations. Arms and legs were strong. Sensation to light touch and vibration sensation was normal. Temperature and pinprick sensation was normal. Rapid alternating movements were normal. There was no dysmetria. There was no intention tremor. Gait was deferred due to bedrest. Arm and leg reflexes were 2+ and symmetric. Merritt's sign was absent. Plantar responses were flexor. RADHA ANTONY NP May 28, 2018 17:37
[2018-05-28] MEDS: SENNA TAB PO SCH (21:00)
[2018-05-28] MEDS: ATORVASTATIN 40 MG TAB PO SCH (22:02)
[2018-05-28] MEDS: INSULIN ASP PROT/ASPART (70/30) PEN SC SCH (22:08)
[2018-05-29] VITALS (19 sets, daily range): BP systolic 101–190; BP diastolic 53–87; PULSE 55–79; RESP 13–27
[2018-05-29] MEDS: ACCU-CHEK XX SCH ×4 (02:58→14:17)
[2018-05-29] MEDS ORDERED: PROPOFOL 200 MG INJ ONE (07:00)
[2018-05-29] MEDS ORDERED: LIDOCAINE 2% (SDV) 5 ML INJ ONE (07:00)
[2018-05-29] MEDS: metFORMIN 850 MG TAB PO SCH ×2 (08:00→17:12)
[2018-05-29] MEDS: INSULIN ASPART [NOVOLOG] 3 ML PEN SC SCH ×3 (08:00→17:28)
[2018-05-29] MEDS: FUROSEMIDE 20 MG TAB PO SCH ×2 (08:10→16:15)
[2018-05-29] MEDS: BENAZEPRIL 10 MG TAB PO SCH ×2 (08:10→16:16)
[2018-05-29] MEDS: ASPIRIN (EC) 81 MG TAB PO SCH ×2 (08:10→16:16)
[2018-05-29] MEDS: FERROUS SULFATE (EC) 325 MG TAB PO SCH (08:10)
[2018-05-29] MEDS: ENOXAPARIN 30 MG/0.3 ML SYG SC SCH (08:11)
--- NOTE | 2018-05-29 10:27 | PREAC ---
Date/Time of Note Date/Time of Note DATE: 05/29/18 TIME: 10:26 Anesthesia Eval and Record Evaluation Time Pre-Procedure Interview DATE: 05/29/18 TIME: 10:26 Age 62 Sex female NPO: 8 hrs Preoperative diagnosis HEART FAILURE Planned procedure CHERYL Past Medical History Past Medical History: Includes Cardio: HTN, CAD, CHF Endo: Diabetes Renal: CKD Heme: Anemia Surgery & Anesthesia Issues No known issue Meds Anticoagulation: No Beta Pramod within 24 hr: Yes Reported Medications Insulin Isophan/Regular (Humulin 70/30) 100 Units/Ml Susp, 25 UNIT SC QPM, EA 05/23/18 Furosemide* (Furosemide*) 20 Mg Tablet, 20 MG PO DAILY, #30 TAB 05/23/18 Aspirin (Low Dose Aspirin) 81 Mg Tablet.dr, 81 MG PO DAILY, #30 TAB 05/23/18 Metformin Hcl* (Metformin Hcl*) 850 Mg Tablet, 850 MG PO TIDM A, #60 TAB 05/23/18 Sennosides* (Senna Lax*) 8.6 Mg Tablet, 2 TAB PO QHS, TAB 05/23/18 Atorvastatin* (Atorvastatin*) 40 Mg Tablet, 40 MG PO QHS, #30 TAB 05/23/18 Ferrous Sulfate* (Ferrous Sulfate*) 325 Mg Tabec, 325 MG PO BID, TAB 05/23/18 Carvedilol* (Carvedilol*) 3.125 Mg Tablet, 3.125 MG PO BID, #60 TAB 05/23/18 Discontinued Reported Medications Azithromycin* (Azithromycin*) 250 Mg Tablet, 250 MG PO DAILY for 5 Days, #6 TAB FOR 5 DAYS,LAST DATE 03/01/18 02/27/18 Irbesartan* (Irbesartan*) 150 Mg Tablet, 150 MG PO DAILY, TAB 02/27/18 Amlodipine Besylate* (Amlodipine Besylate*) 10 Mg Tablet, 10 MG PO DAILY, #30 TAB 02/27/18 Metformin Hcl* (Metformin Hcl*) 850 Mg Tablet, 850 MG PO AC D, #60 TAB 02/27/18 Insulin NPH Human Isophane (Humulin N) 100 Unit/1 Ml Vial, 15 UNIT SQ BID, VIAL 02/27/18 Insulin Regular, Human (Humulin R) 100 Unit/1 Ml Vial, 10 UNIT IJ BID, VIAL 02/27/18 Current Medications IV Flush (NS 3 ml) 3 ml PER PROTOCOL IV ; Start 05/23/18 at 20:30 Ondansetron HCl (Zofran Inj) 4 mg Q6H PRN IV NAUSEA/VOMITING; Start 05/23/18 at 20:30 Morphine Sulfate (morphine) 2 mg Q4H PRN IV .PAIN 7-10; Start 05/23/18 at 20:30 Enoxaparin Sodium (Lovenox) 30 mg DAILY SC Last administered on 05/27/18 08:28; Admin Dose 30 MG; Start 05/24/18 at 09:00 Clonidine (Catapres) 0.1 mg Q6H PRN PO SBP >160 Last administered on 05/24/18 05:10; Admin Dose 0.1 MG; Start 05/23/18 at 20:30 Diagnostic Test (Pha) (Accu-Chek) 1 ea 02 XX Last administered on 05/29/18 02:58; Admin Dose 1 EA; Start 05/24/18 at 02:00 Insulin Aspart (Novolog Insulin Pen) 5 unit WITH MEALS SC Last administered on 05/28/18 17:19; Admin Dose 5 UNIT; Start 05/24/18 at 08:00 Aspirin (Halfprin) 81 mg DAILY PO Last administered on 05/27/18 08:15; Admin Dose 81 MG; Start 05/24/18 at 09:00 Atorvastatin Calcium (Lipitor) 40 mg QHS PO Last administered on 05/28/18 22:02; Admin Dose 40 MG; Start 05/23/18 at 21:00 Carvedilol (Coreg) 3.125 mg BID PO Last administered on 05/28/18 22:02; Admin Dose 3.125 MG; Start 05/23/18 at 21:00 Ferrous Sulfate (Ferrous Sulfate (Ec)) 325 mg BID PO Last administered on 05/28/18 22:01; Admin Dose 325 MG; Start 05/23/18 at 21:00 Furosemide (Lasix) 20 mg DAILY PO Last administered on 05/27/18 08:15; Admin Dose 20 MG; Start 05/24/18 at 09:00 Metformin HCl (Glucophage) 850 mg BID WITH MEALS PO Last administered on 05/28/18 17:13; Admin Dose 850 MG; Start 05/23/18 at 21:00 Senna (Senokot) 2 tab QHS PO Last administered on 05/27/18at 20:24; Admin Dose 2 TAB; Start 05/23/18 at 21:00 Diagnostic Test (Pha) (Accu-Chek) 1 ea AC MEALS AND BEDTIME XX Last administered on 05/28/18at 21:47; Admin Dose 1 EA; Start 05/23/18 at 21:00 Miscellaneous Information 1 ea NOTE XX ; Start 05/23/18 at 20:30 Glucose (Glutose) 15 gm Q15M PRN PO DECREASED GLUCOSE; Start 05/23/18 at 20:30 Glucose (Glutose) 22.5 gm Q15M PRN PO DECREASED GLUCOSE; Start 05/23/18 at 20:30 Dextrose (D50w Syringe) 25 ml Q15M PRN IV DECREASED GLUCOSE; Start 05/23/18 at 20:30 Dextrose (D50w Syringe) 50 ml Q15M PRN IV DECREASED GLUCOSE; Start 05/23/18 at 20:30 Glucagon (Glucagen) 1 mg Q15M PRN IM DECREASED GLUCOSE; Start 05/23/18 at 20:30 Glucose (Glutose) 15 gm Q15M PRN BUCCAL DECREASED GLUCOSE; Start 05/23/18 at 20:30 Benazepril HCl (Lotensin) 10 mg DAILY PO ; Start 05/28/18 at 09:00 Insulin Aspart Prota 70%/Aspart 30% (Novolog Mix (70/ 30) Flexpen) 20 unit QPM SC Last administered on 05/28/18at 22:08; Admin Dose 20 UNIT; Start 05/27/18 at 21:00 Meds reviewed: Yes Allergies Coded Allergies: No Known Allergy (Unverified , 05/23/18) Allergies Reviewed: Yes Labs/Studies Labs Reviewed: Reviewed by anesthesiologist Result Diagram: 05/29/1812 05/29/18 0512 Laboratory Tests 05/29/18 05:12 test: N/A Pre-procedure Exam Last vitals Vital Signs Date Temp Pulse Resp B/P (MAP) Pulse Ox O2 O2 Flow FiO2 Time Delivery Rate 05/29/18 Room Air 09:21 05/29/18 62 08:11 05/29/18 97.4 18 167/70 96 07:47 (102) Airway: Adequate mouth opening, Adequate thyromental dist Mallampati: Mallampati II Teeth: Normal Lung: Normal Heart: Normal ASA Physical Status ASA physical status: 3 Emergency: None Planned Anesthetic General/MAC: MAC Planned Pain Management Parenteral pain med Pre-operative Attestations Prior to commencing anesthesia and surgery, the patient was re-evaluated, there was verification of: *The patient's identity *The results of appropriate recent lab work and preoperative vital signs *The above evaluation not changing prior to induction *Anesthetic plan, risk benefits, alternative and complications discussed with pa tient/family; questions answered; patient/family understands, accepts and wishes to proceed. JACOB HUMPHREYS May 29, 2018 10:27
--- NOTE | 2018-05-29 11:01 | CONS ---
Assessment/Plan Cardiology Heart Failure Type: Acute on Chronic Heart Failure Type: Systolic Assessment/Plan Hospital Course (Demo Recall) IMPRESSION: 1. Cardiomyopathy with severely depressed left ventricular ejection fraction approximately 25% to 30% by echo. 2. History of recent ST elevation myocardial infarction. 3. History of coronary artery disease, status post CABG x2, January 2018. 4. Hypertension, mildly elevated with holding of antihypertensives at this time. 5. Dyslipidemia. 6. CVA, acute with left-sided weakness, improving. 7. Diabetes mellitus with uncontrolled blood sugars. 8. Dyslipidemia with low HDL. Recc: -tele -Contineu coreg/ACEI -Continue daily lasix and follow volume status which appear euvolemic -ongoing neuro eval and treatment -scheduled for CHERYL today Consultation Date/Type/Reason Admit Date/Time May 26, 2018 at 06:43 Initial Consult Date 05/25/18 Type of Consult Cardiology Reason for Consultation Cardiomyopathy Requesting Provider: MCKAY ROSAS Date/Time of Note DATE: 05/29/18 TIME: 10:57 Exam/Review of Systems Vital Signs Vitals Vital Signs Date Temp Pulse Resp B/P (MAP) Pulse Ox O2 O2 Flow FiO2 Time Delivery Rate 05/29/18 Room Air 09:21 05/29/18 62 08:11 05/29/18 97.4 18 167/70 96 07:47 (102) Intake and Output 05/28/18 05/28/18 05/29/18 1515:00 23:00 07:00 IntakeIntake Total 1200 ml 480 ml BalanceBalance 1200 ml 480 ml Exam Exam Review of Systems: CONSTITUTIONAL: No fevers, chills. PULMONARY: No sob CARDIOVASCULAR: No chest pain/palpitations GASTROINTESTINAL: No nausea/vomiting. GENITOURINARY: No hematuria/dysuria. MUSCULOSKELETAL: No myagias/arthalgias. PSYCHIATRIC: The patient denies depression. NEUROLOGIC: No weakness Psych: no complaints Head: normocephalic ENMT: mucosa pink and moist Neck: supple, jvd (9 ) Respiratory: clear to auscultation Cardiovascular: regular rate and rhythm Gastrointestinal: soft, non-tender Extremities: edema (none) Neurological: other (No focal deficits) Labs Result Diagram: 05/29/18 0512 05/29/18 0512 Results 24hrs Laboratory Tests Test 05/28/18 12:02 05/28/18 17:12 05/28/18 21:46 05/29/18 02:57 Bedside Glucose 158 139 185 105 Test 05/29/18 05:12 05/29/18 07:26 White Blood Count 9.3 Red Blood Count 4.28 Hemoglobin 12.5 Hematocrit 38.7 Mean Corpuscular 90.4 Volume Mean Corpuscular 29.2 Hemoglobin Mean Corpuscular 32.3 Hemoglobin Concent Red Cell 14.8 H Distribution Width Platelet Count 336 Mean Platelet Volume 9.8 Immature 0.200 Granulocytes % Neutrophils % 42.2 Lymphocytes % 48.2 Monocytes % 6.9 Eosinophils % 1.9 Basophils % 0.6 Nucleated Red Blood 0.0 Cells % Immature 0.020 Granulocytes # Neutrophils # 3.9 Lymphocytes # 4.5 H Monocytes # 0.6 Eosinophils # 0.2 Basophils # 0.1 Nucleated Red Blood 0.0 Cells # Prothrombin Time 11.6 L Prothrombin Time 0.9 Ratio INR International 0.84 Normalized Ratio Activated 31.0 Partial Thromboplast Time Sodium Level 143 Potassium Level 3.8 Chloride Level 103 Carbon Dioxide Level 31 Anion Gap 9 Blood Urea Nitrogen 28 H Creatinine 0.96 Est Glomerular 59 L Filtrat Rate mL/min Glucose Level 148 Calcium Level 9.3 Bedside Glucose 125 Medications Medications Current Medications IV Flush (NS 3 ml) 3 ml PER PROTOCOL IV ; Start 05/23/18 at 20:30 Ondansetron HCl (Zofran Inj) 4 mg Q6H PRN IV NAUSEA/VOMITING; Start 05/23/18 at 20:30 Morphine Sulfate (morphine) 2 mg Q4H PRN IV .PAIN 7-10; Start 05/23/18 at 20:30 Enoxaparin Sodium (Lovenox) 30 mg DAILY SC Last administered on 05/27/18at 08:28; Admin Dose 30 MG; Start 05/24/18 at 09:00 Clonidine (Catapres) 0.1 mg Q6H PRN PO SBP >160 Last administered on 05/24/18at 05:10; Admin Dose 0.1 MG; Start 05/23/18 at 20:30 Diagnostic Test (Pha) (Accu-Chek) 1 ea 02 XX Last administered on 05/29/18at 02:58; Admin Dose 1 EA; Start 05/24/18 at 02:00 Insulin Aspart (Novolog Insulin Pen) 5 unit WITH MEALS SC Last administered on 05/28/18 17:19; Admin Dose 5 UNIT; Start 05/24/18 at 08:00 Aspirin (Halfprin) 81 mg DAILY PO Last administered on 05/27/18 08:15; Admin Dose 81 MG; Start 05/24/18 at 09:00 Atorvastatin Calcium (Lipitor) 40 mg QHS PO Last administered on 05/28/18 22:0 2; Admin Dose 40 MG; Start 05/23/18 at 21:00 Carvedilol (Coreg) 3.125 mg BID PO Last administered on 05/28/18 22:02; Admin Dose 3.125 MG; Start 05/23/18 at 21:00 Ferrous Sulfate (Ferrous Sulfate (Ec)) 325 mg BID PO Last administered on 05/28/18 22:01; Admin Dose 325 MG; Start 05/23/18 at 21:00 Furosemide (Lasix) 20 mg DAILY PO Last administered on 05/27/18 08:15; Admin Dose 20 MG; Start 05/24/18 at 09:00 Metformin HCl (Glucophage) 850 mg BID WITH MEALS PO Last administered on 05/28/18 17:13; Admin Dose 850 MG; Start 05/23/18 at 21:00 Senna (Senokot) 2 tab QHS PO Last administered on 05/27/18 20:24; Admin Dose 2 TAB; Start 05/23/18 at 21:00 Diagnostic Test (Pha) (Accu-Chek) 1 ea AC MEALS AND BEDTIME XX Last administered on 05/28/18 21:47; Admin Dose 1 EA; Start 05/23/18 at 21:00 Miscellaneous Information 1 ea NOTE XX ; Start 05/23/18 at 20:30 Glucose (Glutose) 15 gm Q15M PRN PO DECREASED GLUCOSE; Start 05/23/18 at 20:30 Glucose (Glutose) 22.5 gm Q15M PRN PO DECREASED GLUCOSE; Start 05/23/18 at 20:30 Dextrose (D50w Syringe) 25 ml Q15M PRN IV DECREASED GLUCOSE; Start 05/23/18 at 20:30 Dextrose (D50w Syringe) 50 ml Q15M PRN IV DECREASED GLUCOSE; Start 05/23/18 at 20:30 Glucagon (Glucagen) 1 mg Q15M PRN IM DECREASED GLUCOSE; Start 05/23/18 at 20:30 Glucose (Glutose) 15 gm Q15M PRN BUCCAL DECREASED GLUCOSE; Start 05/23/18 at 20:30 Benazepril HCl (Lotensin) 10 mg DAILY PO ; Start 05/28/18 at 09:00 Insulin Aspart Prota 70%/Aspart 30% (Novolog Mix (70/ 30) Flexpen) 20 unit QPM SC Last administered on 05/28/18at 22:08; Admin Dose 20 UNIT; Start 05/27/18 at 21:00 HANNAH STRAUSS May 29, 2018 11:01
--- NOTE | 2018-05-29 11:06 | SIPON ---
Date/Time of Note Date/Time of Note DATE: 05/29/18 TIME: 11:05 Operative Report Preoperative Diagnosis 1.CVA Postoperative Diagnosis 1.cardiomyopathy Operation/Procedure Performed 1.CHERYL Surgeon see signature line licensed loan officer assistant 1.William Anesthesia: moderate sedation Estimated blood loss: minimal Transfusion Required none Specimen none Grafts/Implants none Complications none HANNAH STRAUSS May 29, 2018 11:06
--- NOTE | 2018-05-29 11:07 | PAC ---
Date/Time of Note Date/Time of Note DATE: 05/29/18 TIME: 11:07 Post-Anesthesia Notes Post-Anesthesia Note Last documented vital signs Vital Signs Date Temp Pulse Resp B/P (MAP) Pulse Ox O2 O2 Flow FiO2 Time Delivery Rate 05/29/18 98.2 76 101/67 97 Room Air 1106 05/29/18 62 08:11 05/29/18 97.4 18 167/70 96 07:47 (102) Activity: WNL Respiratory function: WNL Cardiovascular function: WNL Mental status: Baseline Pain reasonably controlled: Yes Hydration appropriate: Yes Nausea/Vomiting absent: Yes JACOB HUMPHREYS May 29, 2018 11:07
[2018-05-29] MEDS ORDERED: ALBUTEROL 0.083% (NEB) 2.5 MG/3 ML AMP HHN PRN (11:30)
[2018-05-29] MEDS ORDERED: MIDAZOLAM 1 MG/ML 2 ML INJ IV PRN (11:30)
[2018-05-29] MEDS ORDERED: EPHEDrine SULFATE 50 MG/5 ML SYG IV PRN (11:30)
[2018-05-29] MEDS ORDERED: FENTAnyl 50 MCG/ML VIAL IV PRN ×2 (11:30)
[2018-05-29] MEDS ORDERED: hydrALAzine 20 MG INJ IV PRN (11:30)
[2018-05-29] MEDS ORDERED: ONDANSETRON 4 MG INJ IV PRN (11:30)
[2018-05-29] MEDS ORDERED: DIPHENHYDRAMINE 50 MG INJ IV PRN (11:30)
[2018-05-29] MEDS ORDERED: LABETALOL HCL 20MG INJ IV PRN (11:30)
[2018-05-29] MEDS ORDERED: METOCLOPRAMIDE 10 MG INJ IV PRN (11:30)
--- NOTE | 2018-05-29 12:04 | CONS ---
Assessment/Plan Assessment/Plan Hospital Course 62 F c/ reported Hx of CAD s/p CABG in 03/21, and other cerebrovascular risk factors, who presents for evaluation of dysarthria and left arm weakness and numbness.. MRI brain confirmed acute R hemispheric infarcts..for which neurology is consulted. CUS was notable for moderate R ICA stenosis; CTA neck confirmed 60% R ICA stenosis.. Echo is notable for severely depressed EF A1C 7.9% ESR 45 RPR neg LDL 54; Trig 211 P: Cont asa/lipitor daily for secondary stroke prevention for now R ICA stenosis management per vascular sx PT/OT/ST as necessary Glucose control and other medical management per primary Will follow clinically Consultation Date/Type/Reason Admit Date/Time May 26, 2018 at 06:43 Type of Consult Neurology Reason for Consultation stroke Requesting Provider: MCKAY ROSAS Date/Time of Note DATE: 05/29/18 TIME: 12:04 24 HR Interval Summary Free Text/Dictation Continues acute care. Awaiting CHERYL. Exam Vital Signs Vitals Vital Signs Date Temp Pulse Resp B/P (MAP) Pulse Ox O2 O2 Flow FiO2 Time Delivery Rate 05/29/18 66 14 127/64 96 Room Air 11:33 (85) 05/29/18 2.0 11:08 05/29/18 98.1 11:02 Intake and Output 05/28/18 05/28/18 05/29/18 1515:00 23:00 07:00 IntakeIntake Total 1200 ml 480 ml BalanceBalance 1200 ml 480 ml Exam PE: Gen Appearance: No Apparent Distress HEENT: Normocephalic Cardiovascular: Regular rate Lungs: Clear bilaterally Abdomen: Soft Extremities: Dry NE: The patient was alert and oriented. Language was normal. Fund of knowledge was normal. Pupils were equal and reactive to light. There was no afferent pupillary defect. Visual shultz were normal. Funduscopic examination showed sharp disc margins and spontaneous venous pulsations. Extra-ocular movements were full. Ptosis was absent. There was no nystagmus. Facial sensation was normal. Face was symmetric with normal strength. Hearing was intact. Palate movements were normal. Neck strength was normal. There was normal tongue bulk and speed of movement. Tone was normal. Muscle bulk was normal. I did not see fasciculations. Arms and legs were strong. Sensation to light touch and vibration sensation was normal. Temperature and pinprick sensation was normal. Rapid alternating movements were normal. There was no dysmetria. There was no intention tremor. Gait was deferred due to bedrest. Arm and leg reflexes were 2+ and symmetric. Merritt's sign was absent. Plantar responses were flexor. RADHA ANTONY NP May 29, 2018 12:04
--- NOTE | 2018-05-29 15:17 | CARRPT ---
DATE OF PROCEDURE: 05/29/2018 REASON FOR CHERYL: Assess for source of embolus. TYPE OF ANESTHESIA: MAC under direction of anesthesiologist at bedside. BRIEF HISTORY AND HOSPITAL COURSE: Ms. Braga is a 62-year-old female with a history of recent ST -elevation myocardial, status post CABG x2, 01/2018, hypertension, dyslipidemia and subsequent cardio myopathy, diabetes mellitus who presented with acute left-sided weakness and was found to have suffer ed a CVA. The patient was found to have carotid stenosis but upon evaluation by vascular surgery it w as not thought to be significant enough to cause stroke. Therefore, a transesophageal echo has been ordered to assess for source of embolus, possible etiology of stroke. DESCRIPTION OF PROCEDURE: After informed consent was obtained, the patient was brought to the card[facility] where she was connected to continuous telemetry monitoring and continuous O2 saturation mo nitoring and blood pressure cuff cycling every 3 to 5 minutes. The patient had a bite block placed i n her mouth and patient's esophagus was intubated with the transesophageal probe. Using a multiplana r imaging and color flow Doppler interrogation, the patient's intracardiac structures were adequately interrogated including the patient's aorta and subsequently the probe was removed. The patient was allowed to wake from anesthetized state, completing the procedure. There were no noted complications . FINDINGS: 1. No left atrial appendage thrombus. Left atrial appendage velocity approximately 40 cm per second . 2. No patent foramen ovale or other interatrial septal defect by color flow Doppler interrogation of septum as well as agitated saline contrast injection. 3. Severely depressed left ventricular systolic function. 4. Mild calcificated aortic valve apparatus with adequate leaflet excursion. No aortic regurgitatio n. 5. Pulmonic apparatus somewhat poorly visualized. 6. Normal-appearing tricuspid valve apparatus. Mild tricuspid regurgitation. 7. Normal-appearing mitral valve apparatus with trace to mild mitral regurgitation. 8. Mild to moderate atherosclerotic plaquing and calcification of the patient's descending and dista l ascending aorta. IMPRESSION: 1. No definite findings of left atrial appendage thrombus or spontaneous contrast, no findings of in tracardiac areas of thrombus as a source of embolus. 2. Mild to moderate atherosclerotic plaquing in the patient's aorta as possible cause of embolus. RECOMMENDATIONS: 1. At this time, the patient will be allowed to awake from the anesthetized state. The patient shou ld remain n.p.o. x2 hours, then have sips of clear liquid and advance diet as tolerated back to full. 2. At this time, I did not find indication for initiation of anticoagulation from a cardiac source b ut will continue to assess the patient for other sources of embolus such as occult atrial fibrillatio n. Dictated By: HANNAH PERES/JULIENNE Conf#: [id number] DID#: [id number] CC: ZOIE WINCHESTER MD; NALDO EMERY MD; GASTON SMITH MD;*EndCC*
--- NOTE | 2018-05-29 20:59 | PN ---
Date/Time of Note Date/Time of Note DATE: 05/29/18 TIME: 20:58 Assessment/Plan VTE Prophylaxis Risk score (from Nsg)>0 risk: 6 SCD applied (from Nsg): Yes Lines/Catheters IV Catheter Type (from Nrsg): Saline Lock Urinary Cath still in place: No Assessment/Plan Assessment/Plan -Acute infarct with left upper extremity weakness and numbness. Continue aspirin, PT OT and speech therapist evaluation. Dr. Marshall is following in neurology consultation. -Symptomatic moderate stenosis (50-69%) at the proximal right internal carotid artery. Dr. Casanova is asked to see patient in vascular surgery consultation. -Coronary artery disease status post recent CABG by Dr Casanova. -Low EF per recent Echo. Dr Silva is following in cardiology consultation. -Hypertension -Diabetes mellitus with hemoglobin A1c 7.9. Continue metformin and NovoLog. -Hyperlipidemia, continue statin. Further recommendations based on clinical course. Plan of care discussed with Dr. Nettles. Result Diagram: 05/29/18 0512 05/29/18 0512 Results 24hrs Laboratory Tests Test 05/28/18 21:46 05/29/18 02:57 05/29/18 05:12 05/29/18 07:26 Bedside Glucose 185 105 125 White Blood Count 9.3 Red Blood Count 4.28 Hemoglobin 12.5 Hematocrit 38.7 Mean Corpuscular 90.4 Volume Mean Corpuscular 29.2 Hemoglobin Mean Corpuscular 32.3 Hemoglobin Concent Red Cell 14.8 H Distribution Width Platelet Count 336 Mean Platelet Volume 9.8 Immature 0.200 Granulocytes % Neutrophils % 42.2 Lymphocytes % 48.2 Monocytes % 6.9 Eosinophils % 1.9 Basophils % 0.6 Nucleated Red Blood 0.0 Cells % Immature 0.020 Granulocytes # Neutrophils # 3.9 Lymphocytes # 4.5 H Monocytes # 0.6 Eosinophils # 0.2 Basophils # 0.1 Nucleated Red Blood 0.0 Cells # Prothrombin Time 11.6 L Prothrombin Time 0.9 Ratio INR International 0.84 Normalized Ratio Activated 31.0 Partial Thromboplast Time Sodium Level 143 Potassium Level 3.8 Chloride Level 103 Carbon Dioxide Level 31 Anion Gap 9 Blood Urea Nitrogen 28 H Creatinine 0.96 Est Glomerular 59 L Filtrat Rate mL/min Glucose Level 148 Calcium Level 9.3 Test 05/29/18 12:17 05/29/18 17:14 Bedside Glucose 180 164 Exam/Review of Systems Exam Vitals Vital Signs Date Temp Pulse Resp B/P (MAP) Pulse Ox O2 O2 Flow FiO2 Time Delivery Rate 05/29/18 79 20:00 05/29/18 Room Air 16:45 05/29/18 160/78 16:17 (105) 05/29/18 98.9 17 99 15:23 05/29/18 2.0 11:08 Intake and Output 05/28/18 05/28/18 05/29/18 1515:00 23:00 07:00 IntakeIntake Total 1200 ml 480 ml BalanceBalance 1200 ml 480 ml Results Results 24hrs Laboratory Tests Test 05/28/18 21:46 05/29/18 02:57 05/29/18 05:12 05/29/18 07:26 Bedside Glucose 185 105 125 White Blood Count 9.3 Red Blood Count 4.28 Hemoglobin 12.5 Hematocrit 38.7 Mean Corpuscular 90.4 Volume Mean Corpuscular 29.2 Hemoglobin Mean Corpuscular 32.3 Hemoglobin Concent Red Cell 14.8 H Distribution Width Platelet Count 336 Mean Platelet Volume 9.8 Immature 0.200 Granulocytes % Neutrophils % 42.2 Lymphocytes % 48.2 Monocytes % 6.9 Eosinophils % 1.9 Basophils % 0.6 Nucleated Red Blood 0.0 Cells % Immature 0.020 Granulocytes # Neutrophils # 3.9 Lymphocytes # 4.5 H Monocytes # 0.6 Eosinophils # 0.2 Basophils # 0.1 Nucleated Red Blood 0.0 Cells # Prothrombin Time 11.6 L Prothrombin Time 0.9 Ratio INR International 0.84 Normalized Ratio Activated 31.0 Partial Thromboplast Time Sodium Level 143 Potassium Level 3.8 Chloride Level 103 Carbon Dioxide Level 31 Anion Gap 9 Blood Urea Nitrogen 28 H Creatinine 0.96 Est Glomerular 59 L Filtrat Rate mL/min Glucose Level 148 Calcium Level 9.3 Test 05/29/18 12:17 05/29/18 17:14 Bedside Glucose 180 164 Medications Medication Current Medications IV Flush (NS 3 ml) 3 ml PER PROTOCOL IV ; Start 05/23/18 at 20:30 Ondansetron HCl (Zofran Inj) 4 mg Q6H PRN IV NAUSEA/VOMITING; Start 05/23/18 at 20:30 Morphine Sulfate (morphine) 2 mg Q4H PRN IV .PAIN 7-10; Start 05/23/18 at 20:30 Enoxaparin Sodium (Lovenox) 30 mg DAILY SC Last administered on 05/27/18 08:28; Admin Dose 30 MG; Start 05/24/18 at 09:00 Clonidine (Catapres) 0.1 mg Q6H PRN PO SBP >160 Last administered on 05/24/18 05:10; Admin Dose 0.1 MG; Start 05/23/18 at 20:30 Diagnostic Test (Pha) (Accu-Chek) 1 ea 02 XX Last administered on 05/29/18 02:58; Admin Dose 1 EA; Start 05/24/18 at 02:00 Insulin Aspart (Novolog Insulin Pen) 5 unit WITH MEALS SC Last administered on 05/29/18 17:28; Admin Dose 5 UNIT; Start 05/24/18 at 08:00 Aspirin (Halfprin) 81 mg DAILY PO Last administered on 05/29/18 16:16; Admin Dose 81 MG; Start 05/24/18 at 09:00 Atorvastatin Calcium (Lipitor) 40 mg QHS PO Last administered on 05/28/18 22:02; Admin Dose 40 MG; Start 05/23/18 at 21:00 Carvedilol (Coreg) 3.125 mg BID PO Last administered on 05/29/18 16:16; Admin Dose 3.125 MG; Start 05/23/18 at 21:00 Ferrous Sulfate (Ferrous Sulfate (Ec)) 325 mg BID PO Last administered on 05/28/18 22:01; Admin Dose 325 MG; Start 05/23/18 at 21:00 Furosemide (Lasix) 20 mg DAILY PO Last administered on 05/29/18 16:15; Admin Dose 20 MG; Start 05/24/18 at 09:00 Metformin HCl (Glucophage) 850 mg BID WITH MEALS PO Last administered on 05/29/18 17:12; Admin Dose 850 MG; Start 05/23/18 at 21:00 Senna (Senokot) 2 tab QHS PO Last administered on 05/27/18 20:24; Admin Dose 2 TAB; Start 05/23/18 at 21:00 Diagnostic Test (Pha) (Accu-Chek) 1 ea AC MEALS AND BEDTIME XX Last administered on 05/28/18 21:47; Admin Dose 1 EA; Start 05/23/18 at 21:00 Miscellaneous Information 1 ea NOTE XX ; Start 05/23/18 at 20:30 Glucose (Glutose) 15 gm Q15M PRN PO DECREASED GLUCOSE; Start 05/23/18 at 20:30 Glucose (Glutose) 22.5 gm Q15M PRN PO DECREASED GLUCOSE; Start 05/23/18 at 20:30 Dextrose (D50w Syringe) 25 ml Q15M PRN IV DECREASED GLUCOSE; Start 05/23/18 at 20:30 Dextrose (D50w Syringe) 50 ml Q15M PRN IV DECREASED GLUCOSE; Start 05/23/18 at 20:30 Glucagon (Glucagen) 1 mg Q15M PRN IM DECREASED GLUCOSE; Start 05/23/18 at 20:30 Glucose (Glutose) 15 gm Q15M PRN BUCCAL DECREASED GLUCOSE; Start 05/23/18 at 20:30 Benazepril HCl (Lotensin) 10 mg DAILY PO Last administered on 05/29/18at 16:16; Admin Dose 10 MG; Start 05/28/18 at 09:00 Insulin Aspart Prota 70%/Aspart 30% (Novolog Mix (70/ 30) Flexpen) 20 unit QPM SC Last administered on 05/28/18at 22:08; Admin Dose 20 UNIT; Start 05/27/18 at 21:00 WILLIAM TOMLINSON May 29, 2018 20:59
--- NOTE | 2018-05-30 18:06 | RADRPT ---
Vent Rate: 58 bpm RR Interval: 0 msec ND Interval: 140 msec QRS Duration: 116 msec QT Interval: 468 msec QTC Interval: 459 msec P-R-T [place]: 55 - 41 - [address] & T wave abnormality, consider inferolateral ischemia Abnormal ECG Electronically Signed By: Juan Egan
--- NOTE | 2018-05-30 18:22 | RADRPT ---
Vent Rate: 64 bpm RR Interval: 0 msec MT Interval: 136 msec QRS Duration: 114 msec QT Interval: 440 msec QTC Interval: 453 msec P-R-T [place]: 58 - 40 - 141 degrees Normal sinus rhythm Nonspecific ST and T wave abnormality Abnormal ECG Electronically Signed By: Juan Egan
== END 2018-05-29 21:51 | disposition left against medical advice (07) | DRG 64 ==
LOC: E/R 12:17 → 6WM 18:27 → OBSVTOIN 05-26 06:43
PROVIDERS: ADMIT Internal Medicine; ATTEND Internal Medicine
DX: I63.231 Cerebral infarction due to unspecified occlusion or stenosis of right carotid arteries (principal); I63.40 Cerebral infarction due to embolism of unspecified cerebral artery; I10 Essential (primary) hypertension; E11.9 Type 2 diabetes mellitus without complications; G83.24 Monoplegia of upper limb affecting left nondominant side; I25.10 Atherosclerotic heart disease of native coronary artery without angina pectoris; E11.65 Type 2 diabetes mellitus with hyperglycemia; E78.5 Hyperlipidemia, unspecified; I25.2 Old myocardial infarction; I25.5 Ischemic cardiomyopathy; Z79.4 Long term (current) use of insulin; Z95.1 Presence of aortocoronary bypass graft
CPT/HCPCS: 36415; 70450; 70496; 70498; 70553; 71045; 80048; 80053; 80061; 80307; 82962; 83036; 83735; 83880; 84100; 84443; 84484; 85025; 85049; 85610; 85651; 85670; 85730; 86592; 92610; 93005; 93306; 93312; 93325; 93880; 97161; 97166; G0378; J1650; J1815; J1817